=== PATIENT | female | born 2000 | race Hispanic/Latino ===

== ENCOUNTER 2023-04-21 07:29 | Emergency (ER) | payer SELFPAY ==
--- NOTE | 2023-04-21 08:43 | ER ---
Nurse's Notes [facility] Name: Debra Banerjee Age: 22 yrs Sex: Female : 2000 Arrival Date: 04/21/2023 Time: 07:29 Bed 21 Private MD: Diagnosis: Unspecified conjunctivitis Presentation: 04/21 08:11 Chief complaint: Patient states: Right eye itching and tearing x 1 day. Coronavirus jl7 screen: At this time, the client does not indicate any symptoms associated with coronavirus-19. Ebola Screen: No symptoms or risks identified at this time. Initial Sepsis Screen: Does the patient meet any 2 criteria? No. Patient's initial sepsis screen is negative. Does the patient have a suspected source of infection? No. Patient's initial sepsis screen is negative. Risk Assessment: Do you want to hurt yourself or someone else? Patient reports no desire to harm self or others. Onset of symptoms was April 20, 2023. 08:11 Method Of Arrival: Ambulatory [facility] 08:11 Acuity: EILEEN 4 jl7 Triage Assessment: 09:28 General: Appears. jl7 [employer]IST: 08:13 LMP N/A - Recent , Not jl7 Historical: - Allergies: 08:13 No Known Allergies; jl7 - Home Meds: 08:13 Zoloft Oral [Active]; jl7 - PMHx: 08:13 Depressive disorder; jl7 - Immunization history:: Adult Immunizations unknown. - Social history:: Smoking status: Patient denies any tobacco usage or history of. unknown. Screenin:21 [facility] ED Fall Risk Assessment (Adult) Score/Fall Risk Level 0 - 2 = Low Risk jl7 Oriented to surroundings, Maintained a safe environment. Abuse screen: Denies threats or abuse. Denies injuries from another. Nutritional screening: No deficits noted. Tuberculosis screening: No symptoms or risk factors identified. Vital Signs: 08:11 BP 133 / 92; Pulse 90; Resp 15; Temp 97.3; Pulse Ox 100% ; Weight 81.65 kg; Height 5 jl7 ft. 0 in. ; 08:11 Body Mass Index 35.15 (81.65 kg, 152.4 cm) 7 ED Course: 07:37 Patient arrived in ED. im 08:13 Triage completed. jl7 08:13 Arm band placed on right wrist. jl7 08:16 Patricia Hay MD is Attending Physician. sp3 08:23 Anita Raygoza FNP-C is PHCP. snw 08:23 Anita Raygoza FNP-C is PHCP. snw 09:21 Tony Palencia, RN is Primary Nurse. jl7 09:21 Patient has correct armband on for positive identification. Provided Education on: use jl7 of call [place]. 09:21 No provider procedures requiring assistance completed. Patient did not have IV access jl7 during this emergency room visit. 09:44 Primary Nurse role handed off by Tony Palencia, RN 3 Administered Medications: No medications were administered Medication: 09:28 VIS not applicable for this client. jl7 Outcome: 08:42 Discharge ordered by . snw 09:28 Discharged to home ambulatory, jl7 09:28 Condition: stable 09:28 Discharge instructions given to patient, Instructed on discharge instructions, follow up and referral plans. medication usage, Demonstrated understanding of instructions, follow-up care, medications, Prescriptions given X 1, 09:29 Patient left the ED. jl7 09:46 Patient left the ED. 3 Signatures: Anita Raygoza FNP-C FIELD HOCKEY AND LACROSSE COACH-Csnw Tony Palencia, RN RN jl7 Patricia Hay MD MD sp3 Anu Mendoza RN RN eh3 Sydney Banerjee
--- NOTE | 2023-04-21 08:43 | EDPHYS ---
Physician Documentation [facility] Name: Debra Banerjee Age: 22 yrs Sex: Female : 2000 Arrival Date: 04/21/2023 Time: 07:29 Bed 21 Private MD: ED Physician Patricia Hay HPI: 04/21 08:40 This 22 yrs old Female presents to ER via Ambulatory with complaints of Eye Problem. snw 08:40 The patient is experiencing matting or discharge, itching. Onset: The symptoms/episode snw began/occurred suddenly, 1 day(s) ago, and became persistent. Duration: the symptoms are continuous. Aggravated by rubbing. Associated signs and symptoms: Pertinent positives: None. Severity of symptoms: At their worst the symptoms were very mild. It is unknown whether or not the patient has had similar symptoms in the past. It is unknown whether or not the patient has recently seen a physician. RN CASE MANAGER HOSPICE: 08:13 LMP N/A - Recent , Not Historical: - Allergies: 08:13 No Known Allergies; jl7 - Home Meds: 08:13 Zoloft Oral [Active]; jl7 - PMHx: 08:13 Depressive disorder; jl7 - Immunization history:: Adult Immunizations unknown. - Social history:: Smoking status: Patient denies any tobacco usage or history of. unknown. ROS: 08:40 Constitutional: Negative for fever, chills, and weight loss, ENT: Negative for injury, snw pain, and discharge, Neck: Negative for injury, pain, and swelling, Cardiovascular: Negative for chest pain, palpitations, and edema, Respiratory: Negative for shortness of breath, cough, wheezing, and pleuritic chest pain, Abdomen/GI: Negative for abdominal pain, nausea, vomiting, diarrhea, and constipation, Back: Negative for injury and pain, : Negative for injury, bleeding, discharge, and swelling, MS/Extremity: Negative for injury and deformity, Skin: Negative for injury, rash, and discoloration, Neuro: Negative for headache, weakness, numbness, tingling, and seizure, Psych: Negative for depression, anxiety, suicide ideation, homicidal ideation, and hallucinations, 08:40 Eyes: Positive for itching, matting, right greater than left, Exam: 08:40 Constitutional: This is a well developed, well nourished patient who is awake, alert, snw and in no acute distress. Head/Face: Normocephalic, atraumatic. ENT: Nares patent. No nasal discharge, no septal abnormalities noted. Tympanic membranes are normal and external auditory canals are clear. Oropharynx with no redness, swelling, or masses, exudates, or evidence of obstruction, uvula midline. Mucous membranes moist. Neck: Trachea midline, no thyromegaly or masses palpated, and no cervical lymphadenopathy. Supple, full range of motion without nuchal rigidity, or vertebral point tenderness. No Meningismus. Chest/axilla: Normal chest wall appearance and motion. Nontender with no deformity. No lesions are appreciated. Cardiovascular: Regular rate and rhythm with a normal S1 and S2. No gallops, murmurs, or rubs. Normal PMI, no JVD. No pulse deficits. Respiratory: Lungs have equal breath sounds bilaterally, clear to auscultation and percussion. No rales, rhonchi or wheezes noted. No increased work of breathing, no retractions or nasal flaring. Abdomen/GI: Soft, non-tender, with normal bowel sounds. No distension or tympany. No guarding or rebound. No evidence of tenderness throughout. Back: No spinal tenderness. No costovertebral tenderness. Full range of motion. Skin: Warm, dry with normal turgor. Normal color with no rashes, no lesions, and no evidence of cellulitis. MS/ Extremity: Pulses equal, no cyanosis. Neurovascular intact. Full, normal range of motion. Neuro: Awake and alert, GCS 15, oriented to person, place, time, and situation. Cranial nerves II-XII grossly intact. Motor strength 5/5 in all extremities. Sensory grossly intact. Cerebellar exam normal. Normal gait. Psych: Awake, alert, with orientation to person, place and time. Behavior, mood, and affect are within normal limits. 08:40 Eyes: Periorbital structures: appear normal, Pupils: equal, round, and reactive to light and accomodation, Extraocular movements: no acute changes, Conjunctiva: injected, minimally, Vital Signs: 08:11 BP 133 / 92; Pulse 90; Resp 15; Temp 97.3; Pulse Ox 100% ; Weight 81.65 kg; Height 5 jl7 ft. 0 in. ; 08:11 Body Mass Index 35.15 (81.65 kg, 152.4 cm) jl7 MDM: 08:23 Patient medically screened. snw 08:41 Differential diagnosis: Allergic conjunctivitis in Infectious conjunctivitis in. Data snw reviewed: vital signs, nurses notes. Counseling: I had a detailed discussion with the patient and/or guardian regarding the historical points, exam findings, and any diagnostic results supporting the discharge/admit diagnosis, the need for outpatient follow up, for definitive care, to return to the emergency department if symptoms worsen or persist or if there are any questions or concerns that arise at home. Special discussion: Based on the history and exam findings, there is no indication for further emergent testing or inpatient evaluation. I discussed with the patient/guardian the need to see the primary care provider for further evaluation of the symptoms. Administered Medications: No medications were administered Disposition Summary: 04/21/23 08:42 Discharge Ordered Notes: Location: Home snw Condition: Stable snw Diagnosis - Unspecified conjunctivitis snw Followup: snw - With: Emergency Department - When: As needed - Reason: Worsening of condition Followup: snw - With: Private Physician - When: 2 - 3 days - Reason: Recheck today's complaints, Continuance of care, Re-evaluation by your physician Discharge Instructions: - Discharge Summary Sheet snw - Allergic Conjunctivitis, Adult snw - Rehydration, Adult snw - Eating Plan for Women snw Forms: - Medication Reconciliation Form snw - Thank You Letter snw - Antibiotic Education snw - Prescription Opioid Use snw - Patient Portal Instructions snw - Leadership Thank You Letter snw Prescriptions: - Pataday Once Daily Relief 0.7 % Ophthalmic drops - instill 1 drop OPHTHALMIC route daily as needed for itching; 1 unit; Refills: snw 0, Product Selection Permitted Signatures: Anita Raygoza FNP-C TYPO MACHINE OPERATOR-Csnw Tony Palencia RN RN jl7
[2023-04-21 09:42] VITALS: BP 133/92; TEMP 97.3; O2SAT 100
== END 2023-04-21 09:46 | disposition home or self-care (01) ==
LOC: ER 07:29
DX: H10.9 Unspecified conjunctivitis (principal)
CPT/HCPCS: 99283

== ENCOUNTER 2024-02-23 08:32 | Emergency (ER) | payer OTHER ==
--- OUTSIDE RECORDS SUMMARY | 2024-02-23 08:39 | XMS REPORT | Continuity of Care Document ---
Author Name Unknown Address [address] [facility] [address] [place] [address] [facility] thconnect Address [address] [facility] [place] [address] Care Team Providers Care Cutter Head Sharpener Name Role Phone SERAFIN MONTERROSO Primary Care Physician U MELO Tripathi Attending Clinician Unavailable Melo Conway MD Attending Clinician Doctor Unassigned, Tibes Attending Clinician U aiyana 2, [facility] Attending Clinician Unavailable Chano Mcdaniels Attending Clinician Unavail able MELO CONWAY Admitting Clinician Unavailable Melo Conway MD Admitting Clinician Chano Mcdaniels Admitting Clinician Unavail able Payers Payer Name Policy Type Policy Number Effective Date Expirati on Date Source [facility] [id number] 2022 00:00:00 Problems Condition Name Condition Details Condition Category Status Onset Date Resolution Date Last Treatment Date Treating Clinician Comments Source depression depression Disease Active 03-10 00:00: 00 [facility] Normal labor Normal labor Disease Active 2023-0 8-27 00:00: 00 [facility] Liveborn infant, of [place]lexander , born in hospital by vaginal delivery Liveborn infant, of alexander , born in hospital by vaginal delivery Disease Active 8-27 00:00: 00 [facility] Pelvic pain in Pelvic pain in Disease Active 0 8-22 00:00: 00 [facility] High-risk in third trimester High-risk in third trimester Disease Active 7-10 00:00: 00 [facility] Previous section Previous section Disease Active 0 710 00:00: 00 [facility] Rh negative status during in third trimester Rh negative status during in third trimester Disease Active 7 00:00: 00 [facility] History of blood transfusio n History of blood transfusio n Disease Active 7 00:00: 00 [facility] History of hemorrhage History of hemorrhage Disease Active 7 00:00: 00 [facility] History of eclampsia History of eclampsia Disease Active 0 710 00:00: 00 [facility] Allergies, Adverse Reactions, Alerts Allergy Name Allergy Type Status Severity Reaction(s) Onset Date Inactive Date Treating Clinician Comments Source No Known Allergie s DA Active U 07-25 00:00: 00 [facility] [place] DA Active [place] HIVES 2-10 00:00: 00 [facility] No Known Allergie s DA Active U 3-06 00:00: 00 [facility] NO KNOWN ALLERGIE S Drug Class Active [facility] Social History Social Habit Start Date Stop Date Quantity Comments Source ASSERTION 2022-05-29 00:00:00 [facility] Alcohol intake 2023-04-08 00:00:00 2023-04-08 00:00:00 Ex-drinker (finding) [facility] History of Social function 2023-02-23 00:00:00 2023-02-23 00:00:00 [facility] Tobacco use and exposure 2022-12-22 00:00:00 2022-12-22 00:00:00 Smokeless tobacco non-user [facility] Sex Assigned At 2000 00:00:00 2000 00:00:00 [facility] Smoking Status Start Date Stop Date Source Tobacco smoking consumption unknown [facility] Never smoked tobacco [facility] Medications Ordered Medication Name Filled Medication Name Start Date Stop Date Current Medication? Ordering Clinician Indication Dosage Frequency Signature (SIG) Comments Components Source norgestimat e-ethinyl estradioL 0.25-35 mg-mcg per tablet 2022-06 00:00: 00 Yes [id number] 1{tbl} Take 1 tablet by mouth in the morning. [facility] SERTraline (ZOLOFT) 100 mg tablet 2022-06 00:00: 00 Yes [id number] 100mg Take 1 tablet by mouth in the morning. [facility] FERROUS SULFATE 325 mg (65 mg iron) tablet 2022-06 018 00:00: 00 Yes [id number] 325mg TAKE 1 TABLET BY MOUTH IN THE MORNING AND IN THE EVENING [facility] SERTraline (ZOLOFT) 50 mg tablet 2022-06 0-03 00:00: 00 04-08 00:00 :00 No [id number] 50mg Take 1 tablet by mouth in the morning. [facility] norgestimat e-ethinyl estradioL 0.25-35 mg-mcg per tablet 03-10 00:00: 00 04-09 00:00 :00 No [id number] 1{tbl} Take 1 tablet by mouth in the morning. [facility] SERTraline (ZOLOFT) 25 mg tablet 03-10 00:00: 00 04-08 00:00 :00 No [id number] 25mg Take 1 tablet by mouth in the morning. [facility] ibuprofen (IBU) tablet 600 mg 02-09 09:51: 14 Yes 600mg 600 mg, Oral, Q6H ABX, First dose (after last modificati on) on Thu02/09/23 at 0500, Until Discontinu ed, Routine [facility] PNV 102-IRON-FO LATE 1-DSS-DHA ORAL 02-09 08:35: 05 02-09 00:00 :00 No Take by mouth. [facility] vitamin w/FA tablet 02-09 00:00: 00 Yes [id number] 1{tbl} Take 1 tablet by mouth in the morning. [facility] ibuprofen 600 mg tablet 02-09 00:00: 00 Yes [id number] 600mg Take 1 tablet by mouth every 6 (six) hours as needed (Pain). Take with food or milk. [facility] acetaminoph en 325 mg tablet 02-09 00:00: 00 04-08 00:00 :00 No [id number] 650mg Take 2 tablets by mouth every 6 (six) hours as needed for Pain (scale 1-3) or Pain (scale 4-6). [facility] docusate 100 mg capsule 02-09 00:00: 00 04-08 00:00 :00 No [id number] 200mg Take 2 capsules by mouth once daily as needed for Constipati on. [facility] ferrous sulfate 325 mg (65 mg iron) tablet 02-09 00:00: 00 04-01 00:00 :00 No [id number] 325mg Take 1 tablet by mouth in the morning and 1 tablet in the evening. [facility] HYDROcodone -acetaminop hen 5-325 mg tablet 02-09 00:00: 00 02-17 04:59 :00 No [id number] 1{tbl} Take 1 tablet by mouth every 6 (six) hours as needed for Pain (scale 7-10) (Alternate with Ibuprofen) for up to 7 days. Indication s: acute pain [facility] gabapentin 300 mg capsule 02-09 00:00: 00 02-15 04:59 :00 No [id number] 300mg Take 1 capsule by mouth in the morning and 1 capsule at noon and 1 capsule in the evening. Do all this for 5 days. [facility] acetaminoph en (TYLENOL) tablet 650 mg 02-08 23:00: 00 Yes 650mg 650 mg, Oral, Q6H ABX, First dose on Thu02/08/23 at 1800, Until Discontinu ed, Routine [facility] HYDROcodone -acetaminop hen (NORCO 5) 5-325 mg tablet 1 tablet 02-08 23:00: 00 Yes 1{tbl} 1 tablet, Oral, Q6HPRN, Starting on Thu02/08/23 at 1800, Until Discontinu ed, Routine, Pain (scale 7-10), Alternate with Ibuprofen [facility] gabapentin (NEURONTIN) capsule 300 mg 02-08 19:00: 00 Yes 300mg 300 mg, Oral, TID, First dose on Thu02/08/23 at 1400, Until Discontinu ed, Routine [facility] acetaminoph en ADULT (OFIRMEV) injection 1,000 mg 02-08 19:00: 00 02-08 19:11 :00 No 1000mg 1,000 mg, IV Infusion, at 400 mL/hr Administer over 15 Minutes, ONCE, 1 dose, On Thu02/08/23 at 1400, Routine
Indicatio n: Perioperat rod Patient [facility] ketorolac (TORADOL) injection 30 mg 02-08 17:00: 00 02-09 09:50 :24 No 30mg 30 mg, Slow IV Push, Q6H ABX, 4 doses, First dose (after last modificati on) on Thu02/08/23 at 1200, Last dose on Thu02/09/23 at 0600, Routine [facility] diphenhydrA MINE (BENADRYL) injection 25 mg 02-08 15:57: 03 Yes 25mg 25 mg, Slow IV Push, Q6HPRN, Starting on Thu02/08/23 at 1057, Until Discontinu ed, Routine, Itching [facility] diphenhydrA MINE (BENADRYL) tablet 25 mg 02-08 15:57: 03 Yes 25mg 25 mg, Oral, Q6HPRN, Starting on Thu02/08/23 at 1057, Until Discontinu ed, Routine, Sleep, Itching [facility] ondansetron (ZOFRAN (PF)) injection 4 mg 02-08 15:57: 03 Yes 4mg 4 mg, Slow IV Push, Q8HPRN, Starting on Thu02/08/23 at 1057, Until Discontinu ed, Routine, Nausea and Vomiting (N/V) [facility] bisacodyL (DULCOLAX) suppository 10 mg 02-08 15:57: 03 Yes 10mg 10 mg, Rectal, QDAILYPRN, Starting on Thu02/08/23 at 1057, Until Discontinu ed, Routine, Constipati on [facility] simethicone (GAS RELIEF (SIMETHICON E)) chewable tablet 160 mg 02-08 15:57: 03 Yes 160mg 160 mg, Oral, PC+HSPRN, Starting on Thu02/08/23 at 1057, Until Discontinu ed, Routine, Gas [facility] docusate (COLACE) capsule 200 mg 02-08 15:57: 03 Yes 200mg 200 mg, Oral, QDAILYPRN, Starting on Thu02/08/23 at 1057, Until Discontinu ed, Routine, Constipati on [facility] magnesium hydroxide (MILK OF MAGNESIA) 400 mg/5 mL suspension 30 mL 02-08 15:57: 03 Yes 30mL 30 mL, Oral, QDAILYPRN, Starting on Thu02/08/23 at 1057, Until Discontinu ed, Routine, Constipati on [facility] lactated ringers IV infusion 1,000 mL 02-08 15:57: 03 Yes 1000mL at 125 mL/hr, 1,000 mL, IV Infusion, PRN, 1 dose, Starting on Thu02/08/23 at 1057, Until Discontinu ed, Routine [facility] azithromyci n (ZITHROMAX) 500 mg in NaCl 0.9% (NS) 250 mL VIAL-MATE IV piggyback 02-08 14:45: 00 02-08 16:09 :00 No 500mg 500 mg, IV Piggyback, ONCE, 1 dose, On Thu02/08/23 at 0945, Administer over 60 Minutes, 250 mL
Reas on for Anti-Infec tive: Surgical Prophylaxi s
Surgi perlita Prophylaxi s: ROAD CONDUCTOR
Duration of therapy: within 24 hours of surgery [facility] mupirocin (BACTROBAN OINT) 2 % skin ointment 02-08 13:38: 00 Yes Intra-op [facility] naloxone (NARCAN) injection 0.2 mg 02-08 13:04: 50 02-09 13:03 :50 No .2mg 0.2 mg, Intramuscu lar, Q3HPRN, Starting on Thu02/08/23 at 0804, Until 02/09/23 at 0803, Routine, Itching [facility] naloxone (NARCAN) injection 0.4 mg 02-08 13:03: 59 02-10 23:14 :19 No .4mg 0.4 mg, Slow IV Push, PRN - SEE INSTRUCTIO NS, Starting on Thu02/08/23 at 0803, Until Tu02/10/23 at 1814, Routine, Analgesia Recovery [facility] sodium chloride 0.9 % irrigation solution 02-08 12:59: 00 Yes PRN, Starting on Thu02/08/23 at 0759, Until Discontinu ed, Intra-op [facility] lactated ringers IV infusion 1,000 mL 02-08 12:30: 00 02-08 15:57 :11 No 1000mL at 125 mL/hr, 1,000 mL, IV Infusion, CONTINUOUS , Starting on Thu02/08/23 at 0730, Until Thu02/08/23 at 1057, LARRY [facility] sodium citrate-cit trevor acid (BICITRA) 500-334 mg/5 mL solution 30 mL 02-08 09:03: 47 02-08 12:09 :00 No 30mL 30 mL, Oral, PRE-PROCED URE ONCE, 1 dose, Starting on 02/08/23 at 0403, Until Discontinu ed, Routine, Surgery/Pr radha [facility] PNV 102-IRON-FO LATE 1-DSS-DHA ORAL 10 15:13: 26 Yes Take by mouth. [facility] Immunizations Ordered Immunization Name Filled Immunization Name Date Status Comments Source Rho (d) Immune Globulin 2023-02-09 00:00:00 Completed [facility] Rho (d) Immune Globulin 2023-02-09 00:00:00 Completed [facility] Rho (d) Immune Globulin 2023-02-09 00:00:00 Completed [facility] Rho (d) Immune Globulin 2023-02-09 00:00:00 Completed [facility] Rho (d) Immune Globulin 2023-02-09 00:00:00 Completed [facility] Rho (d) Immune Globulin 2022-12-22 00:00:00 Completed [facility] Rho (d) Immune Globulin 2022-12-22 00:00:00 Completed [facility] Rho (d) Immune Globulin 2022-12-22 00:00:00 Completed [facility] Rho (d) Immune Globulin 2022-12-22 00:00:00 Completed [facility] Rho (d) Immune Globulin 2022-12-22 00:00:00 Completed [facility] Rho (d) Immune Globulin 2022-12-22 00:00:00 Completed [facility] Rho (d) Immune Globulin 2022-12-22 00:00:00 Completed [facility] Rho (d) Immune Globulin 2022-12-22 00:00:00 Completed [facility] Rho (d) Immune Globulin 2022-12-22 00:00:00 Completed [facility] Rho (d) Immune Globulin 2022-12-22 00:00:00 Completed [facility] Rho (d) Immune Globulin 2022-12-22 00:00:00 Completed [facility] Rho (d) Immune Globulin 2022-12-22 00:00:00 Completed [facility] Rho (d) Immune Globulin 2022-12-22 00:00:00 Completed [facility] Rho (d) Immune Globulin 2022-12-22 00:00:00 Completed [facility] Rho (d) Immune Globulin Unknown Completed [facility] Rho (d) Immune Globulin Unknown Completed [facility] Rho (d) Immune Globulin Unknown Completed [facility] Rho (d) Immune Globulin Unknown Completed [facility] Rho (d) Immune Globulin Unknown Completed [facility] Rho (d) Immune Globulin Unknown Completed [facility] Rho (d) Immune Globulin Unknown Completed [facility] Rho (d) Immune Globulin Unknown Completed [facility] Rho (d) Immune Globulin Unknown Completed [facility] Rho (d) Immune Globulin Unknown Completed [facility] Rho (d) Immune Globulin Unknown Completed [facility] Rho (d) Immune Globulin Unknown Completed [facility] Rho (d) Immune Globulin Unknown Completed [facility] Rho (d) Immune Globulin Unknown Completed [facility] Rho (d) Immune Globulin Unknown Completed [facility] Rho (d) Immune Globulin Unknown Completed [facility] Vital Signs Vital Name Observation Time Observation Value Comments S ource Systolic blood pressure 2023-04-08 19:58:00 130 mm[Hg] [facility] Diastolic blood pressure 2023-04-08 19:58:00 85 mm[Hg] [facility] Heart rate 2023-04-08 19:58:00 65 [facility] temperature 2023-04-08 19:58:00 36.11 Sherita [facility] Respiratory rate 2023-04-08 19:58:00 17 /min [facility] Body height 2023-04-08 19:58:00 149.9 cm [facility] Body weight 2023-04-08 19:58:00 82.827 kg [facility] BMI 2023-04-08 19:58:00 36.88 kg/m2 [facility] Systolic blood pressure 2023-03-10 20:39:00 135 mm[Hg] [facility] Diastolic blood pressure 2023-03-10 20:39:00 94 mm[Hg] [facility] Heart rate 2023-03-10 20:38:00 62 /min [facility] Body temperature 2023-03-10 20:38:00 36.39 Sherita [facility] Body height 2023-03-10 20:38:00 149.9 cm Univ [facility] Body weight 2023-03-10 20:38:00 81.92 kg [facility] BMI 2023-03-10 20:38:00 36.48 kg/m2 Univ [facility] Systolic blood pressure 2023-03-02 19:07:00 117 mm[Hg] [facility] Diastolic blood pressure 2023-03-02 19:07:00 78 mm[Hg] [facility] Heart rate 2023-03-02 19:05:00 78 /min [facility] Body temperature 2023-03-02 19:05:00 36.61 Sherita [facility] Respiratory rate 2023-03-02 19:05:00 18 /min [facility] Body height 2023-03-02 19:05:00 149.9 cm [facility] Body weight 2023-03-02 19:05:00 81.738 kg [facility] BMI 2023-03-02 19:05:00 36.40 kg/m2 [facility] Body temperature 2023-02-10 14:00:00 36.78 Sherita [facility] Systolic blood pressure 2023-02-10 10:25:00 130 mm[Hg] [facility] Diastolic blood pressure 2023-02-10 10:25:00 74 mm[Hg] [facility] Heart rate 2023-02-10 10:25:00 66 /min [facility] Respiratory rate 2023-02-10 10:25:00 20 /min [facility] Oxygen saturation in Arterial blood by Pulse oximetry 2023-02-10 10:25:00 100 /min [facility] Body height 2023-02-08 12:00:00 149.9 cm [facility] Body weight 2023-02-08 12:00:00 92.08 kg [facility] BMI 2023-02-08 12:00:00 41.00 kg/m2 [facility] Body temperature 2023-02-08 13:40:00 36.28 Sherita [facility] Heart rate 2023-02-08 12:00:00 71 /min [facility] Body height 2023-02-08 12:00:00 149.9 cm [facility] Body weight 2023-02-08 12:00:00 92.08 kg Univ [facility] BMI 2023-02-08 12:00:00 41.00 kg/m2 [facility] Oxygen saturation in Arterial blood by Pulse oximetry 2023-02-08 12:00:00 100 /min [facility] Systolic blood pressure 2023-02-08 07:00:00 107 mm[Hg] [facility] Diastolic blood pressure 2023-02-08 07:00:00 62 mm[Hg] [facility] Respiratory rate 2023-02-08 06:46:00 17 /min [facility] Systolic blood pressure 2023-02-03 18:11:00 120 mm[Hg] [facility] Diastolic blood pressure 2023-02-03 18:11:00 81 mm[Hg] [facility] Heart rate 2023-02-03 18:11:00 80 /min [facility] Body temperature 2023-02-03 18:11:00 36.67 Sherita [facility] Respiratory rate 2023-02-03 18:11:00 18 /min [facility] Body height 2023-02-03 18:11:00 149.9 cm [facility] Body weight 2023-02-03 18:11:00 91.264 kg [facility] BMI 2023-02-03 18:11:00 40.64 kg/m2 [facility] Oxygen saturation in Arterial blood by Pulse oximetry 2023-02-03 18:11:00 98 /min [facility] Systolic blood pressure 2023-01-27 20:31:00 109 mm[Hg] [facility] Diastolic blood pressure 2023-01-27 20:31:00 72 mm[Hg] [facility] Heart rate 2023-01-27 20:31:00 85 /min [facility] Body temperature 2023-01-27 20:31:00 37.06 Sherita [facility] Body height 2023-01-27 20:31:00 149.9 cm [facility] Body weight 2023-01-27 20:31:00 92.171 kg Univ [facility] BMI 2023-01-27 20:31:00 41.04 kg/m2 [facility] Systolic blood pressure 2023-01-13 18:34:00 103 mm[Hg] [facility] Diastolic blood pressure 2023-01-13 18:34:00 63 mm[Hg] [facility] Heart rate 2023-01-13 18:34:00 68 /min [facility] Body temperature 2023-01-13 18:34:00 36.61 Sherita [facility] Body height 2023-01-13 18:34:00 149.9 cm [facility] Body weight 2023-01-13 18:34:00 90.629 kg Univ [facility] BMI 2023-01-13 18:34:00 40.35 kg/m2 [facility] Systolic blood pressure 2022-12-22 19:56:00 117 mm[Hg] [facility] Diastolic blood pressure 2022-12-22 19:56:00 72 mm[Hg] [facility] Heart rate 2022-12-22 19:56:00 76 /min [facility] Body temperature 2022-12-22 19:56:00 36.56 Sherita [facility] Respiratory rate 2022-12-22 19:56:00 18 /min [facility] Body height 2022-12-22 19:56:00 149.9 cm [facility] Body weight 2022-12-22 19:56:00 89.812 kg Univ [facility] BMI 2022-12-22 19:56:00 39.99 kg/m2 [facility] Oxygen saturation in Arterial blood by Pulse oximetry 2022-12-22 19:56:00 98 /min [facility] Procedures Procedure Date / Time Performed Performing Clinician Source POCT TEST 2023-04-08 00:00:00 Melo Conway [facility] CONSENT FOR CONTRACEPTION 2023-03-10 05:01:00 Doctor Unassigned, Tibes [facility] POCT TEST 2023-03-10 00:00:00 Melo Conway [facility] CBC WITH DIFF 2023-02-09 09:44:00 Melo Conway [facility] HB -MATERNAL HEMORRHAGE SCREEN 2023-02-09 09:44:00 Melo Conway [facility] CBC WITH DIFF 2023-02-09 09:44:00 Jaime Melofrancesco Carlson [facility] HB -MATERNAL HEMORRHAGE SCREEN 2023-02-09 09:44:00 Melo Conway [facility] PREPARE PACKED RBC 2023-02-08 17:16:33 Melo Conway [facility] PREPARE PACKED RBC 2023-02-08 17:16:33 Melo Conway U [facility] SECTION 2023-02-08 12:00:00 Melo Conway [facility] SECTION 2023-02-08 12:00:00 Melo Conway [facility] ANTI-D R/O PANEL 2023-02-08 11:13:00 Melo Conway [facility] ABORH CONFIRMATION (LAB ONLY) 2023-02-08 11:13:00 Melo Conway [facility] EXTRA TUBE LAV (BLOOD BANK) 2023-02-08 11:13:00 Jaime Melofrancesco Carlson [facility] ANTI-D R/O PANEL 2023-02-08 11:13:00 Jaime Melofrancesco Carlson [facility] ABORH CONFIRMATION (LAB ONLY) 2023-02-08 11:13:00 Melo Conway [facility] EXTRA TUBE LAV (BLOOD BANK) 2023-02-08 11:13:00 Jaime [facility] CBC WITH DIFF 2023-02-08 09:30:00 Jaime [facility] HEPATITIS B SURFACE ANTIGEN 2023-02-08 09:30:00 Conway [facility] HB ABO GROUPING 2023-02-08 09:30:00 Conway [facility] RHO (D) IMMUNE GLOBULIN 2023-02-08 09:30:00 Conway [facility] ADC OR STEVEN ONLY - RPR 2023-02-08 09:30:00 Conway [facility] HIV 1/2 AG-AB WITH REFLEX 2023-02-08 09:30:00 Jaime [facility] CBC WITH DIFF 2023-02-08 09:30:00 Jaime [facility] HEPATITIS B SURFACE ANTIGEN 2023-02-08 09:30:00 Conway, [facility] HB ABO GROUPING 2023-02-08 09:30:00 Jaime [facility] RHO (D) IMMUNE GLOBULIN 2023-02-08 09:30:00 Jaime [facility] ADC OR STEVEN ONLY - RPR 2023-02-08 09:30:00 Jaime [facility] HIV 1/2 AG-AB WITH REFLEX 2023-02-08 09:30:00 Jaime [facility] ADC CLC OR LCC ONLY - WET PREP 2023-02-08 08:32:00 Jaime [facility] ADC CLC OR LCC ONLY - WET PREP 2023-02-08 08:32:00 Conway [facility] CONSENT/REFUSAL FOR DIAGNOSIS AND TREATMENT 2023-02-08 06:25:26 Doctor Unassigned, Tibes [facility] CONSENT/REFUSAL FOR DIAGNOSIS AND TREATMENT 2023-02-08 06:25:26 Doctor Unassigned, Tibes [facility] POCT URINALYSIS W/O SPECIFIC GRAVITY 2023-02-03 00:00:00 Jaime [facility] >14 WEEKS US LIMITED 2023-01-27 21:19:37 Melo Conway [facility] DSU PRE-OP 2023-01-27 05:01:00 Doctor Unass igned, Tibes [facility] POCT URINALYSIS W/O SPECIFIC GRAVITY 2023-01-27 00:00:00 ConwayMelo [facility] POCT URINALYSIS W/O SPECIFIC GRAVITY 2023-01-13 00:00:00 JaimeMelo [facility] REFERRAL- REQUEST/RESPONSE 2022-12-24 05:01:00 Doctor Unassigned, Tibes [facility] ASSIGNMENT OF BENEFITS 2022-12-22 19:34:02 Docto r Unassigned, Tibes [facility] POCT URINALYSIS W/O SPECIFIC GRAVITY 2022-12-22 00:00:00 Melo Conway [facility] REFERRAL- REQUEST/RESPONSE 2022-12-18 05:01:00 Doctor Unassigned, Tibes [facility] [id number] 2021-07-25 00:00:00 JODIE RUBIO [facility] Encounters Start Date/Time End Date/Time Encounter Type Admission Type Attending [facility] Care Facility Care Department Encounter ID Source 2023-05-06 15:00:00 2023-05-06 15:00:00 Outpatient R MELO CONWAY [facility] [id number] [facility] 2023-04-30 00:00:00 2023-04-30 00:00:00 Refill Melo Conway [place] [address].2.840.114 350.1.13.10 4.2.7.2.686 [id number] 134 [id number] [facility] 2023-04-09 00:00:00 2023-04-09 00:00:00 Telephone Melo Conway [facility] 1.2.840.114 350.1.13.10 4.2.7.2.686 [id number] 134 [id number] [facility] 2023-04-08 14:45:00 2023-04-08 15:18:57 Outpatient R MELO CONWAY [facility] [id number] [facility] 2023-04-08 14:45:00 2023-04-08 15:18:57 Office Visit Melo Conway [facility] 1.2.840.114 350.1.13.10 4.2.7.2.686 [id number] 134 [id number] [facility] 2023-04-02 00:00:00 2023-04-02 00:00:00 Telephone Melo Conway [facility] 1.2.840.114 350.1.13.10 4.2.7.2.686 [id number] 134 [id number] [facility] 2023-04-01 00:00:00 2023-04-01 00:00:00 Refill Melo Conway [facility] 1.2.840.114 350.1.13.10 4.2.7.2.686 [id number] 134 [id number] [facility] 2023-03-10 16:00:00 2023-03-10 16:01:56 Outpatient R MELO CONWAY [facility] [id number] [facility] 2023-03-10 16:00:00 2023-03-10 16:01:56 Routine Visit Melo Conway [facility] 1.2.840.114 350.1.13.10 4.2.7.2.686 [id number] 134 [id number] [facility] 2023-03-10 00:00:00 2023-03-10 00:00:00 Orders Only Doctor Unassigned, Tibes [facility] 1.2.840.114 350.1.13.10 4.2.7.2.686 [id number] 009 [id number] [facility] 2023-03-02 13:45:00 2023-03-02 14:29:51 Outpatient R MELO CONWAY [facility] [id number] [facility] 2023-03-02 13:45:00 2023-03-02 14:29:51 Routine Visit Melo Conway [facility] 1.2.840.114 350.1.13.10 4.2.7.2.686 [id number] 134 [id number] [facility] 2023-02-23 16:00:00 2023-02-23 16:15:00 [facility] 1.2.840.114 350.1.13.10 4.2.7.2.686 [id number] 134 [id number] [facility] 2023-02-23 16:00:00 2023-02-23 16:00:00 Outpatient R MELO CONWAY [facility] [id number] [facility] 2023-02-18 00:00:00 2023-02-18 00:00:00 [facility] 1.2.840.114 350.1.13.10 4.2.7.2.686 [id number] 134 [id number] [facility] 2023-02-08 01:32:00 2023-02-10 15:20:00 [facility] [id number] [facility] 2023-02-08 01:32:00 2023-02-10 15:20:00 Hospital Encounter Melo Conway [facility] 1.2.840.114 350.1.13.10 4.2.7.2.686 [id number] [facility] 2023-02-10 13:00:00 2023-02-10 13:00:00 Outpatient R MELO CONWAY [facility] [id number] [facility] 2023-02-08 07:00:00 2023-02-08 08:42:[address] 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 Visit 2, [facility] 1.2.840.114 350.1.13.10 4.2.7.2.686 [id number] [facility] 2023-01-27 16:00:00 2023-01-27 16:00:51 Routine Visit Melo Conway [facility] 1.2.840.114 350.1.13.10 4.2.7.2.686 [id number] 134 [id number] [facility] 2023-01-27 16:00:00 2023-01-27 16:00:51 Outpatient R MELO CONWAY [facility] [id number] [facility] 2023-01-27 00:00:00 2023-01-27 00:00:00 Orders Only Doctor Unassigned, Tibes [facility] 1.2.840.114 350.1.13.10 4.2.7.2.686 [id number] [id number] [facility] 2023-01-13 13:45:00 2023-01-13 13:51:16 [id number] 2023-01-13 13:45:00 2023-01-13 13:51:16 Routine Visit Melo Conway [facility] 1.2.840.114 350.1.13.10 4.2.7.2.686 [id number] 134 [id number] [facility] 2022-12-24 00:00:00 2022-12-24 00:00:00 Orders Only Doctor Unassigned, Tibes [facility] 1.2.840.114 350.1.13.10 4.2.7.2.686 [id number] 009 [id number] [facility] 2022-12-22 14:30:00 2022-12-22 15:59:23 [id number] 2022-12-22 14:30:00 2022-12-22 15:59:23 Initial Visit Melo Conway [facility] 1.2.840.114 350.1.13.10 4.2.7.2.686 [id number] 134 [id number] [facility] 2022-12-22 00:00:00 2022-12-22 00:00:00 Orders Only Doctor Unassigned, Tibes [facility] 1.2.840.114 350.1.13.10 4.2.7.2.686 [id number] [id number] [facility] 2022-12-18 13:17:56 2022-12-18 13:17:[address] [facility] [id number] Derick Clarke 2022-12-18 00:00:00 2022-12-18 00:00:00 Orders Only Doctor Unassigned, Tibes [facility] 1.2.840.114 350.1.13.10 4.2.7.2.686 [id number] 009 [id number] [facility] 2022-11-19 10:08:38 2022-11-19 10:08:38 Outpatient [facility] [id number] Derick Clarke 2022-10-31 15:21:24 2022-10-31 15:21:24 Outpatient [facility] [id number] Derick Clarke 2022-10-27 11:01:48 2022-10-27 11:01:48 Outpatient [facility] [id number] Derick Clarke 2021-07-25 06:42:00 2021-07-27 17:30:00 Inpatient TAMMY Chano Mcdaniels [facility] [id number] [facility] 2021-07-26 06:07:00 2021-07-26 06:07:00 Outpatient IONCENCIO Chano Mcdaniels [facility] [id number] [facility] Results Test Description Test Time Test Comments Results Result Co mments Source [facility] [id number] 19:57:00* Test Item Value Reference Range Interpretation Comme nts POCT PREG (test code = 1605) Negative On board controls acceptable with C Line (test code = 3574) Yes POCT PREG LOT # (test code = 3575) POCT PREG TEST DATE ( test code = 3576) [facility] [id number] 20:44:00* Test Item Value Reference Range Interpretation Comme nts POCT PREG (test code = 1605) Negative On board controls acceptable with C Line (test code = 3574) Yes POCT PREG LOT # (test code = 3575) POCT PREG TEST DATE ( test code = 3576) [facility] with Hbmhxvdlnxko6026-00-93 10:29:05* Test Item Value Reference Range Interpretation Comme nts WBC (test code = 6690-2) 9.91 See_Comment [Automated messa ge] The system which generated this result transmitted reference range: 4.30 - 11.10 10*3/?L. The reference range was not used to interpret this result as normal/abnormal. RBC (test code = 789-8) 3.48 See_Comment L [Automated messa ge] The system which generated this result transmitted reference range: 3.93 - 5.25 10*6/?L. The reference range was not used to interpret this result as normal/abnormal. HGB (test code = 718-7) 10.4 g/dL 11.6-15.0 L HCT (test code = 4544-3) 31.5 % 35.7-45.2 L MCV (test code = 787-2) 90.5 fL 80.6-95.5 MCH (test code = 785-6) 29.9 pg 25.9-32.8 MCHC (test code = 786-4) 33.0 g/dL 31.6-35.1 RDW-SD (test code = 97844-6) 46.8 fL 39.0-49.9 RDW-CV (test code = 788-0) 14.4 % 12.0-15.5 PLT (test code = 777-3) 208 See_Comment [Automated messa ge] The system which generated this result transmitted reference range: 166 - 358 10*3/?L. The reference range was not used to interpret this result as normal/abnormal. MPV (test code = 47722-6) 10.6 fL 9.5-12.9 NRBC/100 WBC (test code = 7759250659) 0.0 See_Comment [Automated [employer] ssage] The system which generated this result transmitted reference range: 0.0 - 10.0 /100 WBCs. The reference range was not used to interpret this result as normal/abnormal. NRBC x10^3 (test code = 4847835352) See_Comment [Automated [employer] ge] The system which generated this result transmitted reference range: 10*3/?L. The reference range was not used to interpret this result as normal/abnormal. GRAN MAT (NEUT) % (test code = 770-8) 72.8 % IMM GRAN % (test code = 3751960744) 0.70 % LYMPH % (test code = 736-9) 18.5 % MONO % (test code = 5905-5) 7.1 % EOS % (test code = 713-8) 0.6 % BASO % (test code = 706-2) 0.3 % GRAN MAT x10^3(ANC) (test code = 5707454966) 7.22 10*3/uL 1.88-7.09 H IMM GRAN x10^3 (test code = 4860061044) 0.07 10*3/uL 0.00-0.06 H LYMPH x10^3 (test code = 731-0) 1.83 10*3/uL 1.32-3.29 MONO x10^3 (test code = 742-7) 0.70 10*3/uL 0.33-0.92 EOS x10^3 (test code = 711-2) 0.06 10*3/uL 0.03-0.39 BASO x10^3 (test code = 704-7) 0.03 10*3/uL 0.01-0.07 Lab Interpretation (test code = 95587-6) Abnormal [facility] with Ocpmutordxwg4988-25-70 10:29:05* Test Item Value Reference Range Interpretation Comme nts WBC (test code = 6690-2) 9.91 See_Comment [Automated messa ge] The system which generated this result transmitted reference range: 4.30 - 11.10 10*3/?L. The reference range was not used to interpret this result as normal/abnormal. RBC (test code = 789-8) 3.48 See_Comment L [Automated messa ge] The system which generated this result transmitted reference range: 3.93 - 5.25 10*6/?L. The reference range was not used to interpret this result as normal/abnormal. HGB (test code = 718-7) 10.4 g/dL 11.6-15.0 L HCT (test code = 4544-3) 31.5 % 35.7-45.2 L MCV (test code = 787-2) 90.5 fL 80.6-95.5 MCH (test code = 785-6) 29.9 pg 25.9-32.8 MCHC (test code = 786-4) 33.0 g/dL 31.6-35.1 RDW-SD (test code = 77083-0) 46.8 fL 39.0-49.9 RDW-CV (test code = 788-0) 14.4 % 12.0-15.5 PLT (test code = 777-3) 208 See_Comment [Automated messa ge] The system which generated this result transmitted reference range: 166 - 358 10*3/?L. The reference range was not used to interpret this result as normal/abnormal. MPV (test code = 56910-8) 10.6 fL 9.5-12.9 NRBC/100 WBC (test code = 8012983034) 0.0 See_Comment [Automated me ssage] The system which generated this result transmitted reference range: 0.0 - 10.0 /100 WBCs. The reference range was not used to interpret this result as normal/abnormal. NRBC x10^3 (test code = 6567682508) See_Comment [Automated messa ge] The system which generated this result transmitted reference range: 10*3/?L. The reference range was not used to interpret this result as normal/abnormal. GRAN MAT (NEUT) % (test code = 770-8) 72.8 % IMM GRAN % (test code = 1158571667) 0.70 % LYMPH % (test code = 736-9) 18.5 % MONO % (test code = 5905-5) 7.1 % EOS % (test code = 713-8) 0.6 % BASO % (test code = 706-2) 0.3 % GRAN MAT x10^3(ANC) (test code = 6493970539) 7.22 10*3/uL 1.88-7.09 H IMM GRAN x10^3 (test code = 8414225391) 0.07 10*3/uL 0.00-0.06 H LYMPH x10^3 (test code = 731-0) 1.83 10*3/uL 1.32-3.29 MONO x10^3 (test code = 742-7) 0.70 10*3/uL 0.33-0.92 EOS x10^3 (test code = 711-2) 0.06 10*3/uL 0.03-0.39 BASO x10^3 (test code = 704-7) 0.03 10*3/uL 0.01-0.07 Lab Interpretation (test code = 87102-6) [facility]normal [facility] [id number] 10:26:00 * Test Item Value Reference Range Interpretation Comme nts SCREEN (test code = 846) Negative RHIG REQUIRED? (test code = 1747) 1 Syringe [facility] [id number] 10:26:00 * Test Item Value Reference Range Interpretation Comme nts SCREEN (test code = 846) Negative RHIG REQUIRED? (test code = 1747) 1 Syringe General acute hospital OR [facility] ONLY - [id number] 08:04:46* Test Item Value Reference Range Interpretation Comme nts RPR (Qualitative) (test code = 32590-1) Nonreactive Nonreactive Lab Interpretation (test cod e = 45232-4) Normal General acute hospital OR [facility] ONLY - [id number] 08:04:46* Test Item Value Reference Range Interpretation Comme nts RPR (Qualitative) (test code = 31322-4) Nonreactive Nonreactive Lab Interpretation (test cod e = 74728-9) Normal [facility]/O [id number] 17:16:33* Test Item Value Reference Range Interpretation Comme nts ANTIBODY (test code = 683) Anti-D Probable RhIg RhIg given 12/22/22Performed at [facility] Laboratory Services - [facility] Blood [address] [address] Free: [phone] No. [id number] [facility] R/O [id number] 17:16:33* Test Item Value Reference Range Interpretation Comme nts ANTIBODY (test code = 683) Anti-D Probable RhIg RhIg given 12/22/22Performed at [facility] Laboratory Services - [facility] Blood [address] [address]Kwxg Free: [phone] No. [id number] [facility] Hospital[facility]HO (D) IMMUNE [id number] 17:08:10* Test Item Value Reference Range Interpretation Comme nts RHIG CANDIDATE? (test code = 5188) Yes- see comment A Patient is a candidate for RhIg- Patient is Rh Negative and baby is Rh Positive.Performe d at [facility] Laboratory Services - [facility] Blood [address] [place] [address]Twvk Free: [phone] No. [id number] Lab Interpretation (test code = 98192-1) Abnormal [facility]D) IMMUNE [id number] 17:08:10* Test Item Value Reference Range Interpretation Comme nts RHIG CANDIDATE? (test code = 5188) Yes- see comment A Patient is a candidate for RhIg- Patient is Rh Negative and baby is Rh Positive.Performe d at [facility] Laboratory Services - [facility] Blood [address] [place] [address]Ewqh Free: [phone] No. [id number] Lab Interpretation (test code = 86145-4) Abnormal [facility] HospitalHepatitis B Surface [id number] 16:57:37 * Test Item Value Reference Range Interpretation Comme nts HBsAg Semi-Quantitative (vandana t code = 5195-3) 0.06 Negative [facility] B Surface [id number] 16:57:37 * Test Item Value Reference Range Interpretation Comme nts HBsAg Semi-Quantitative (vandana t code = 5195-3) 0.06 Negative [facility]HIV [facility]2 AG-AB WITH [id number] 12:21:40* Test Item Value Reference Range Interpretation Comme nts HIV Semi-quantitative (test code = 52341-8) 0.07 Negative WINSOME (test code = WINSOME) Non-reactive for HIV-1 antigen and HIV-1/HIV-2 antibodies. ?No laboratory evidence of HIV infection. ?Repeat in 2-4 weeks if acute HIV infection is suspected. [facility] AG-AB WITH [id number] 12:21:40* Test Item Value Reference Range Interpretation Comme nts HIV Semi-quantitative (test code = 45819-2) 0.07 Negative WINSOME (test code = WINSOME) Non-reactive for HIV-1 antigen and HIV-1/HIV-2 antibodies. ?No laboratory evidence of HIV infection. ?Repeat in 2-4 weeks if acute HIV infection is suspected. [facility] HospitalABORH Confirmation (Lab Only)2023-02-08 11:24:00* Test Item Value Reference Range Interpretation Comme nts ABO & RH (test code = 20) A Negative [facility] Confirmation (Lab Only)2023-02-08 11:24:00* Test Item Value Reference Range Interpretation Comme nts ABO & RH (test code = 20) A Negative [facility] HospitalCBC with Chedmtfwifrd9084-55-51 09:52:52* Test Item Value Reference Range Interpretation Comme nts WBC (test code = 6690-2) 11.44 See_Comment H [Automated messa ge] The system which generated this result transmitted reference range: 4.30 - 11.10 10*3/?L. The reference range was not used to interpret this result as normal/abnormal. RBC (test code = 789-8) 3.88 See_Comment L [Automated messa ge] The system which generated this result transmitted reference range: 3.93 - 5.25 10*6/?L. The reference range was not used to interpret this result as normal/abnormal. HGB (test code = 718-7) 11.5 g/dL 11.6-15.0 L HCT (test code = 4544-3) 34.7 % 35.7-45.2 L MCV (test code = 787-2) 89.4 fL 80.6-95.5 MCH (test code = 785-6) 29.6 pg 25.9-32.8 MCHC (test code = 786-4) 33.1 g/dL 31.6-35.1 RDW-SD (test code = 16467-3) 46.5 fL 39.0-49.9 RDW-CV (test code = 788-0) 14.4 % 12.0-15.5 PLT (test code = 777-3) 224 See_Comment [Automated messa ge] The system which generated this result transmitted reference range: 166 - 358 10*3/?L. The reference range was not used to interpret this result as normal/abnormal. MPV (test code = 59557-6) 10.6 fL 9.5-12.9 NRBC/100 WBC (test code = 2072769784) 0.0 See_Comment [Automated me ssage] The system which generated this result transmitted reference range: 0.0 - 10.0 /100 WBCs. The reference range was not used to interpret this result as normal/abnormal. NRBC x10^3 (test code = 2972584425) See_Comment [Automated messa ge] The system which generated this result transmitted reference range: 10*3/?L. The reference range was not used to interpret this result as normal/abnormal. GRAN MAT (NEUT) % (test code = 770-8) 71.8 % IMM GRAN % (test code = 4114090206) 1.60 % LYMPH % (test code = 736-9) 20.6 % MONO % (test code = 5905-5) 5.4 % EOS % (test code = 713-8) 0.3 % BASO % (test code = 706-2) 0.3 % GRAN MAT x10^3(ANC) (test code = 6577382318) 8.20 10*3/uL 1.88-7.09 H IMM GRAN x10^3 (test code = 2081707739) 0.18 10*3/uL 0.00-0.06 H LYMPH x10^3 (test code = 731-0) 2.36 10*3/uL 1.32-3.29 MONO x10^3 (test code = 742-7) 0.62 10*3/uL 0.33-0.92 EOS x10^3 (test code = 711-2) 0.04 10*3/uL 0.03-0.39 BASO x10^3 (test code = 704-7) 0.04 10*3/uL 0.01-0.07 Lab Interpretation (test code = 72924-6) Abnormal [facility] with Pxrhvgdpictw9824-57-47 09:52:52* Test Item Value Reference Range Interpretation Comme nts WBC (test code = 6690-2) 11.44 See_Comment H [Automated messa ge] The system which generated this result transmitted reference range: 4.30 - 11.10 10*3/?L. The reference range was not used to interpret this result as normal/abnormal. RBC (test code = 789-8) 3.88 See_Comment L [Automated messa ge] The system which generated this result transmitted reference range: 3.93 - 5.25 10*6/?L. The reference range was not used to interpret this result as normal/abnormal. HGB (test code = 718-7) 11.5 g/dL 11.6-15.0 L HCT (test code = 4544-3) 34.7 % 35.7-45.2 L MCV (test code = 787-2) 89.4 fL 80.6-95.5 MCH (test code = 785-6) 29.6 pg 25.9-32.8 MCHC (test code = 786-4) 33.1 g/dL 31.6-35.1 RDW-SD (test code = 81912-7) 46.5 fL 39.0-49.9 RDW-CV (test code = 788-0) 14.4 % 12.0-15.5 PLT (test code = 777-3) 224 See_Comment [Automated messa ge] The system which generated this result transmitted reference range: 166 - 358 10*3/?L. The reference range was not used to interpret this result as normal/abnormal. MPV (test code = 38012-0) 10.6 fL 9.5-12.9 NRBC/100 WBC (test code = 3551984843) 0.0 See_Comment [Automated [employer] ssage] The system which generated this result transmitted reference range: 0.0 - 10.0 /100 WBCs. The reference range was not used to interpret this result as normal/abnormal. NRBC x10^3 (test code = 2885195211) See_Comment [Automated messa ge] The system which generated this result transmitted reference range: 10*3/?L. The reference range was not used to interpret this result as normal/abnormal. GRAN MAT (NEUT) % (test code = 770-8) 71.8 % IMM GRAN % (test code = 0320703661) 1.60 % LYMPH % (test code = 736-9) 20.6 % MONO % (test code = 5905-5) 5.4 % EOS % (test code = 713-8) 0.3 % BASO % (test code = 706-2) 0.3 % GRAN MAT x10^3(ANC) (test code = 3551148441) 8.20 10*3/uL 1.88-7.09 H IMM GRAN x10^3 (test code = 3711875230) 0.18 10*3/uL 0.00-0.06 H LYMPH x10^3 (test code = 731-0) 2.36 10*3/uL 1.32-3.29 MONO x10^3 (test code = 742-7) 0.62 10*3/uL 0.33-0.92 EOS x10^3 (test code = 711-2) 0.04 10*3/uL 0.03-0.39 BASO x10^3 (test code = 704-7) 0.04 10*3/uL 0.01-0.07 Lab Interpretation (test code = 65012-7) Abnormal [facility] - ONCE [id number] 09:50:00 * Test Item Value Reference Range Interpretation Comme nts ABO & RH (test code = 20) A Negative IAT (test code = 1185) Positive Anti-D probably due to RhIG given 12/22/2022 LM [facility] and Screen - ONCE [id number] 09:50:00 * Test Item Value Reference Range Interpretation Comme nts ABO & RH (test code = 20) A Negative IAT (test code = 1185) Positive Anti-D probably due to RhIG given 12/22/2022 LM [facility] W/O SPECIFIC [id number] 18:09:00* Test Item Value Reference Range Interpretation Comme nts POCT PH U (test code = 3254) n/a 5-8 POCT U LEUK EST (test code = 3263) n/a Negative - Negative POCT U NIT (test code = 3262) n/a Negative - Negati ve POCT U PROT (test code = 3259) TRACE Negative - Negat rod POCT U GLU (test code = 3256) negative Negative - Negati ve POCT U KETONE (test code = 3258) n/a Negative - Neg ative POCT U BLD (test code = 3257) n/a Negative - [facility]ati [facility]CIFIC [id number] 18:09:00* Test Item Value Reference Range Interpretation Comme nts POCT PH U (test code = 3254) n/a 5-8 POCT U LEUK EST (test code = 3263) n/a Negative - Negative POCT U NIT (test code = 3262) n/a Negative - Negati ve POCT U PROT (test code = 3259) TRACE Negative - Negat rod POCT U GLU (test code = 3256) negative Negative - Negati ve POCT U KETONE (test code = 3258) n/a Negative - Neg ative POCT U BLD (test code = 3257) n/a Negative - Negati ve [facility] URINALYSIS W/O SPECIFIC [id number] 20:29:00* Test Item Value Reference Range Interpretation Comme nts POCT PH U (test code = 3254) n/a 5-8 POCT U LEUK EST (test code = 3263) n/a Negative - Negative POCT U NIT (test code = 3262) n/a Negative - Negati ve POCT U PROT (test code = 3259) Negative Negative - Negat rod POCT U GLU (test code = 3256) Normal Negative - Negati ve POCT U KETONE (test code = 3258) n/a Negative - Neg ative POCT U BLD (test code = 3257) n/a Negative - Negati ve [facility] URINALYSIS W/O SPECIFIC [id number] 18:33:00* Test Item Value Reference Range Interpretation Comme nts POCT PH U (test code = 3254) n/a 5-8 POCT U LEUK EST (test code = 3263) n/a Negative - Negative POCT U NIT (test code = 3262) n/a Negative - Negati ve POCT U PROT (test code = 3259) Negative Negative - Negat rod POCT U GLU (test code = 3256) Normal Negative - Negati ve POCT U KETONE (test code = 3258) n/a Negative - Neg ative POCT U BLD (test code = 3257) n/a Negative - Negati ve [facility] URINALYSIS W/O SPECIFIC [id number] 20:09:00* Test Item Value Reference Range Interpretation Comme nts POCT PH U (test code = 3254) n/a 5-8 POCT U LEUK EST (test code = 3263) n/a Negative - Negative POCT U NIT (test code = 3262) n/a Negative - Negati ve POCT U PROT (test code = 3259) negative Negative - Negat rod POCT U GLU (test code = 3256) negative Negative - Negati ve POCT U KETONE (test code = 3258) n/a Negative - Neg ative POCT U BLD (test code = 3257) n/a Negative - [facility] [id number] 20:09:00* Test Item Value Reference Range Interpretation Comme nts POCT PH U (test code = 3254) n/a 5-8 POCT U LEUK EST (test code = 3263) n/a Negative - Negative POCT U NIT (test code = 3262) n/a Negative - Negati ve POCT U PROT (test code = 3259) negative Negative - Negat rod POCT U GLU (test code = 3256) negative Negative - Negati ve POCT U KETONE (test code = 3258) n/a Negative - Neg ative POCT U BLD (test code = 3257) n/a Negative - Negati ve [facility] [id number] 08:56:00* Test Item Value Reference Range Interpretation Comme nts AB RUBELLA IGG (test code = RUBGAB) Reactive IU/mL Non React A In accordance wi th the NCCLS guidelines and based on the WHOInternational Standard, a positive Anti-Rubella serum is anindicator of immune status.These results were obtained using the [employer] XP Rubella IgGAssay. Values obtained from other lever miller's assaymethods may not be used interchangeably. AB RUBELLA [id number] 08:55:00* Test Item Value Reference Range Interpretation Comme nts AB RUBELLA IGG (test code = RUBGAB) Reactive IU/mL Non React A In accordance wi th the NCCLS guidelines and based on the WHOInternational Standard, a positive Anti-Rubella serum is anindicator of immune status.These results were obtained using the [employer] XP Rubella IgGAssay. Values obtained from other lever miller's assaymethods may not be used interchangeably. RAPID PLASMA [id number] 08:13:00* Test Item Value Reference Range Interpretation Comme [facility] RAPID PLASMA REAGIN (test co de = RPR) NON-REACTIVE NON-REACT ACCEPTABLE [facility] TEMP:21 (20-30 CELSIUS)RPMS:100 (98-102 RPMS)HIV-1/2 LOT AND PROCEDURAL CONTROLLOT # [id number].DATE 07/17/2022ROCEDURAL CONTROL ACCEPTABLE Y/N YHBSAG [id number] 08:13:00* Test Item Value Reference Range Interpretation Comme nts AG HEPATITIS B SURFACE (test code = HBSAG) Negative Negative Performed At : , [facility] [address], [id number], [place], Phone: [phone] ACCEPTABLE [facility] TEMP:21 (20-30 CELSIUS)RPMS:100 (98-102 RPMS)HIV-1/2 LOT AND PROCEDURAL CONTROLLOT # [id number].DATE 07/17/2022ROCEDURAL CONTROL ACCEPTABLE Y/N YHIV 1 2 ANTIBODY [id number] 08:13:00* Test Item Value Reference Range Interpretation Comme [facility] HIV 1/2 RAPID SCREEN (test code = [id number]) NONREACTIVE NONREACTIVE Detects HIV-sp ecific antibodies and HIV-p24 antigen. AG HIV1 P24 (test code = [id number]) NONREACTIVE NONREACTIVE ACCEPTABLE [facility] TEMP:21 (20-30 CELSIUS)RPMS:100 (98-102 RPMS)HIV-1/2 LOT AND PROCEDURAL CONTROLLOT # [id number].07/17/2022ROCEDURAL CONTROL ACCEPTABLE Y/N YCBC W/AUTO [id number] 05:29:00* Test Item Value Reference Range Interpretation Comme [facility] WHITE BLOOD CELL (test code = WBC) 14.1 K/mm3 4.8-10.8 H RED BLOOD CELL (test code = RBC) 2.27 M/mm3 4.2-5.4 L HEMOGLOBIN (test code = HGB) 7.0 gm/DL 12.0-16.0 L NOTIFIED RN AMAC IO HGB DROP HEMATOCRIT (test code = HCT) 21.2 % 34.7-43.3 L MEAN CELL VOLUME (test code = MCV) 93.4 fL 81-99 N MEAN CELL HGB (test code = MCH) 30.8 pg 27-31 N MEAN CELL HGB CONCETRATION (test code = MCHC) 33.0 gm/dL 33-37 N RED CELL DISTRIBUTION WIDTH (test code = RDW) 13.9 % 11.5-14.5 N PLATELET COUNT (test code = PLT) 199 X10(3) 130-400 N MEAN PLATELET VOLUME (test code = MPV) 10.8 fL 9.4-12.4 N NEUTROPHIL % (test code = NT%) 65.4 % 51.5-79.7 N IMMATURE GRANULOCYTE % (test code = IG%) 1.100 % 0.108-0.322 H LYMPHOCYTE % (test code = LY%) 25.6 % 14-40 N MONOCYTE % (test code = MO%) 7.4 % 4.0-10.2 N EOSINOPHIL % (test code = EO%) 0.1 % 0-4.1 N BASOPHIL % (test code = BA%) 0.4 % 0.1-0.7 N NUCLEATED RBC % (test code = NRBC%) 0.0 % 0-0 N NEUTROPHIL # (test code = NT#) 9.2 K/mm3 2.5-8.6 H IMMATURE GRANULOCYTE # (test code = IG#) 0.160 K/mm3 0.0052-0.0224 H LYMPHOCYTE # (test code = LY#) 3.6 K/mm3 1.1-3.6 N MONOCYTE # (test code = MO#) 1.1 K/mm3 0.3-0.9 H EOSINOPHIL # (test code = EO#) 0.02 # 0.0-0.4 N BASOPHIL # (test code = BA#) 0.05 K/mm3 0.0-0.2 N NUCLEATED RBC # (test code = NRBC#) 0.00 K/mm3 0.00-0.20 N IS CBC W/DIFF ORDERED BY JOAQUINA PANPROTHROMBIN [id number] 13:51:00* Test Item Value Reference Range Interpretation Comments PROTHROMBIN TIME PATIENT (test code = PTP) 10.1 SECONDS 9.1-12.0 N INTERNATIONAL NORMAL RATIO (test code = INR) 0.94 0.93-1.2 N Recommended Ther apeutic PT Ratios For Oral AnticoagualantTherapy. CONDITION INT'L NORMALIZED PT R--------- Prophylaxis of venous thrombosis 2.0 - 3.0in high risk medical or surgicalpatients, treatment of venousthrombosis, prevention of embolism. Prevention of recurrent embolism, 3.0 - 4.5or treatment of patients with mechanicalprosthetic heart valves. IS THE PATIENT ON ANY ANTICOAGULANTS? NOCOMMENT LINE S/P CSECTION, BLEEDING THROMBOPLASTIN TIME [id number] 13:51:00* Test Item Value Reference Range [facility]ation [facility] PARTIAL (test code = PTT) 29.9 SECONDS 23.0-32.0 N IS THE PATIENT ON ANY ANTICOAGULANTS? NOCOMMENT LINE S/P CSECTION, BLEEDING [id number] 13:51:00* Test Item Value Reference Range Interpretation [facility] FIBRINOGEN (test code = FIB) 446 MG/DL 179-445 H IS THE PATIENT ON ANY ANTICOAGULANTS? NOCOMMENT LINE S/P CSECTION, BLEEDING FIBRIN SPLIT [id number] 13:51:00* Test Item Value Reference Range Interpretation [facility] FIBRIN SPLIT PRODUCT (test c ode = FSP) >80 MCG/ML 0.0-4.9 A IS THE PATIENT ON ANY ANTICOAGULANTS? NOCOMMENT LINE S/P CSECTION, BLEEDINGD- DIMER [id number] 13:51:00* Test Item Value Reference Range Interpretation [facility] D-DIMER QUANT (test code = DDIMER) 15.56 mg/L 0.19-0.52 H *A result of gre ater or equal to 0.50 mg/L FEU is consideredpositive, a result of <0.50 is considered negative for DVTor PE. IS THE PATIENT ON ANY ANTICOAGULANTS? NOCOMMENT LINE S/P CSECTION, BLEEDINGCBC W/AUTO [id number] 12:55:00* Test Item Value Reference Range Interpretation Comme nts WHITE BLOOD CELL (test code = WBC) 22.4 K/mm3 4.8-10.8 H RED BLOOD CELL (test code = RBC) 3.42 M/mm3 4.2-5.4 L HEMOGLOBIN (test code = HGB) 10.5 gm/DL 12.0-16.0 L HEMATOCRIT (test code = HCT) 32.3 % 34.7-43.3 L MEAN CELL VOLUME (test code = MCV) 94.4 fL 81-99 N MEAN CELL HGB (test code = MCH) 30.7 pg 27-31 N MEAN CELL HGB CONCETRATION ( test code = MCHC) 32.5 gm/dL 33-37 L RED CELL DISTRIBUTION WIDTH (test code = RDW) 14.0 % 11.5-14.5 N PLATELET COUNT (test code = PLT) 265 X10(3) 130-400 N MEAN PLATELET VOLUME (test c ode = MPV) 10.9 fL 9.4-12.4 N NEUTROPHIL % (test code = NT%) 88.9 % 51.5-79.7 H IMMATURE GRANULOCYTE % (test code = IG%) 1.100 % 0.108-0.322 H LYMPHOCYTE % (test code = LY%) 7.6 % 14-40 L MONOCYTE % (test code = MO%) 2.2 % 4.0-10.2 L EOSINOPHIL % (test code = EO%) 0.0 % 0-4.1 N BASOPHIL % (test code = BA%) 0.2 % 0.1-0.7 N NUCLEATED RBC % (test code = NRBC%) 0.0 % 0-0 N NEUTROPHIL # (test code = NT#) 19.9 K/mm3 2.5-8.6 H IMMATURE GRANULOCYTE # (test code = IG#) 0.240 K/mm3 0.0052-0.0224 H LYMPHOCYTE # (test code = LY#) 1.7 K/mm3 1.1-3.6 N MONOCYTE # (test code = MO#) 0.5 K/mm3 0.3-0.9 N EOSINOPHIL # (test code = EO#) 0.00 # 0.0-0.4 N BASOPHIL # (test code = BA#) 0.04 K/mm3 0.0-0.2 N NUCLEATED RBC # (test code = NRBC#) 0.00 K/mm3 0.00-0.20 N IS CBC W/DIFF ORDERED BY ? YESPROTHROMBIN [id number] 07:53:00* Test Item Value Reference Range Interpretation Comments PROTHROMBIN TIME PATIENT (test code = PTP) 9.9 SECONDS 9.1-12.0 N INTERNATIONAL NORMAL RATIO (test code = INR) <0.93 0.93-1.2 L Recommended Ther apeutic PT Ratios For Oral AnticoagualantTherapy. CONDITION INT'L NORMALIZED PT R--------- Prophylaxis of venous thrombosis 2.0 - 3.0in high risk medical or surgicalpatients, treatment of venousthrombosis, prevention of embolism. Prevention of recurrent embolism, 3.0 - 4.5or treatment of patients with mechanicalprosthetic heart valves. IS THE PATIENT ON ANY ANTICOAGULANTS? NOTHROMBOPLASTIN TIME [id number] 07:53:00* Test Item Value Reference Range Interpretation Comme nts THROMBOPLASTIN TIME PARTIAL (test code = PTT) 29.1 SECONDS 23.0-32.0 N IS THE PATIENT ON ANY ANTICOAGULANTS? NOCOVID 19 Asymptomatic IH [id number] 07:20:00* Test Item Value Reference Range Interpretation Comments COVID 19 Asymptomatic IH AG (test code = COVNONPUIAG) Presumptive Negative Presump.Neg Results are for the identification of DCKB-HtY-2qdneotzmkrmn protein antigen. Antigen is generallydetectable in upper respiratory specimens during the acutephase of infection. Positive results indicate the presenceof viral antigens, but clinical correlation with patienthistory and other diagnostic information is necessary todetermine infection status. Positive results do not rule outbacterial infection or co-infection with other viruses. Theagent detected may not be the definite cause of disease.Laboratories within the [facility] and its territoriesare required to report all positive results to [facility] public health authorities. Negative results should be treated as presumptive andconfirmed with molecular assay, if necessary for patientmanagement. Negative results do not rule out COVID-19 andshould not be used as the sole basis for treatment orpatient management decisions, including infection controldecisions. Negative results should be considered in thecontext of a patient's recent exposures, history andpresence of clinical signs and symptoms consistent withCOVID-19. The Najma SARS Antigen KAVITHA is intended for use by trainedclinical personnel and individuals trained in point of caresettings. The Najma SARS Antigen KAVITHA is only for use underthe Food and Drug Administration's Emergency UseAuthorization. LOT # [id number].DATE 08/05/22PROCEDURAL CONTROL ACCEPTABLE Y/N YCBC W/AUTO DIFF 2021-07-25 07:18:00* Test Item Value Reference Range Interpretation Comme nts WHITE BLOOD CELL (test code = WBC) 11.4 K/mm3 4.8-10.8 H RED BLOOD CELL (test code = RBC) 3.88 M/mm3 4.2-5.4 L HEMOGLOBIN (test code = HGB) 11.9 gm/DL 12.0-16.0 L HEMATOCRIT (test code = HCT) 36.3 % 34.7-43.3 N MEAN CELL VOLUME (test code = MCV) 93.6 fL 81-99 N MEAN CELL HGB (test code = MCH) 30.7 pg 27-31 N MEAN CELL HGB CONCETRATION ( test code = MCHC) 32.8 gm/dL 33-37 L RED CELL DISTRIBUTION WIDTH (test code = RDW) 13.9 % 11.5-14.5 N PLATELET COUNT (test code = PLT) 255 X10(3) 130-400 N MEAN PLATELET VOLUME (test c ode = MPV) 10.6 fL 9.4-12.4 N NEUTROPHIL % (test code = NT%) 65.7 % 51.5-79.7 N IMMATURE GRANULOCYTE % (test code = IG%) 1.300 % 0.108-0.322 H LYMPHOCYTE % (test code = LY%) 26.7 % 14-40 N MONOCYTE % (test code = MO%) 5.5 % 4.0-10.2 N EOSINOPHIL % (test code = EO%) 0.4 % 0-4.1 N BASOPHIL % (test code = BA%) 0.4 % 0.1-0.7 N NUCLEATED RBC % (test code = NRBC%) 0.0 % 0-0 N NEUTROPHIL # (test code = NT#) 7.5 K/mm3 2.5-8.6 N IMMATURE GRANULOCYTE # (test code = IG#) 0.150 K/mm3 0.0052-0.0224 H LYMPHOCYTE # (test code = LY#) 3.0 K/mm3 1.1-3.6 N MONOCYTE # (test code = MO#) 0.6 K/mm3 0.3-0.9 N EOSINOPHIL # (test code = EO#) 0.05 # 0.0-0.4 N BASOPHIL # (test code = BA#) 0.05 K/mm3 0.0-0.2 N NUCLEATED RBC # (test code = NRBC#) 0.00 K/mm3 0.00-0.20 N IS CBC W/DIFF ORDERED BY ? YESURINALYSIS W/O [id number] 07:16:00* Test Item Value Reference Range Interpretation Comme nts UA COLOR (test code = COLU) Colorless YELLOW UA APPEARANCE (test code = APPU) Turbid CLEAR UA GLUCOSE DIPSTICK (test co de = DGLUU) Normal NORMAL UA BILIRUBIN DIPSTICK (test code = BILU) Negative NEGATIVE UA KETONE DIPSTICK (test cod e = KETU) Negative NEGATIVE UA SPECIFIC GRAVITY (test co de = SGU) 1.004 1.000-1.032 N UA BLOOD DIPSTICK (test code = DELL) Negative NEGATIVE UA PH DIPSTICK (test code = GILMER) 7.0 5.0-9.0 N UA PROTEIN DIPSTICK (test co de = PROU) Negative NEGATIVE UA UROBILINIOGEN DIPSTICK (t est code = URO) Normal NORMAL UA NITRITE DIPSTICK (test co de = SUHAS) Negative NEGATIVE UA LEUKOCYTE ESTERASE DIPSTI CK (test code = LEUU) 25 NEGATIVE A SOURCE: URINESPECIMEN DESCRIPTION: CMCUA [id number] 07:16:00* Test Item Value Reference Range Interpretation Comme nts UA WBC (test code = WBCU) 3-5 0-5 UA RBC (test code = RBCU) 0-2 0-5 UA EPITHELIAL CELLS (test code = EPIU) 21-50 0-10 UA BACTERIA (test code = BACU) OCC NONE SEEN SOURCE: URINESPECIMEN DESCRIPTION: [facility] History and Physical Notes Date/Time Note Provider Source 2023-02-08 04:07:12 Formatting of this n ote is different from the original. TRIAGE HISTORY & PHYSICAL IDENTIFYING DATA Svetlana Banerjee is 22 year old, /White, 38w3d, female with ROB 02/19/2023, by Patient Reported. : 2000 Primary Care Physician: Serafin Monterroso CHIEF COMPLAINT Abdominal cramping HISTORY OF PRESENT ILLNESS vSetlana Banerjee is a 22 year old female @ 38w3d presented for abdominal cramping that started around 8 pm. States that it comes and goes every 5-10 minutes. Pain is 8/10. +FM. No VB or LOF. No pre-eclampsia sx or other complaints. PAST OBSTETRIC HISTORY OB History Para Term AB Living 4 2 2 1 2 SAB IAB Ectopic Multiple Live Births 1 2 # Outcome Date GA Lbr Herb/2nd Weight Sex Delivery Anes PTL Lv 4 Current 3 Term 07/25/21 37w0d 2948 g M CS-Unspec N SHYAM 2 SAB 2020 8w0d 1 Term 01/04/19 37w0d 2863 g F CS-Unspec N SHYAM Comments: pt needed blood transfusion after delievery Complications: Eclampsia PAST MEDICAL HISTORY Problem list: Patient Active Problem List Diagnosis Date Noted Normal labor 02/08/2023 Pelvic pain in 02/03/2023 High-risk in third trimester 12/22/2022 Previous section 12/22/2022 Rh negative status during in third trimester 12/22/2022 History of blood transfusion 12/22/2022 History of hemorrhage 12/22/2022 History of eclampsia 12/22/2022 Operations: Past Surgical History: Procedure Laterality Date SECTION N/A 2018 SECTION N/A 2021 Past Medical History: Diagnosis Date STD (sexually transmitted disease) CURRENT HEALTH STATUS Medications: Current Facility-Administered Medications Medication Dose Route Frequency Last Rate Last Admin carboprost (HEMABATE) injection 250 mcg 250 mcg Intramuscular Q2HPRN ceFAZolin (ANCEF) 2,000 mg in NaCl 0.9% (NS) 100 mL MINI-BAG 2,000 mg IV Piggyback O.R. HOLDING ONCE D5W-LR IV infusion 1,000 mL 1,000 mL IV Infusion TITRATE lactated ringers IV infusion 500 mL 500 mL IV Infusion PRN - SEE INSTRUCTIONS lidocaine 1% (PF) (XYLOCAINE) injection 0.3 mL 0.3 mL Infiltration PRN - SEE INSTRUCTIONS methylergonovine (METHERGINE) injection 0.2 mg 0.2 mg Intramuscular Q4HPRN miSOPROStoL (CYTOTEC) tablet 200 mcg 200 mcg Rectal PRN oxytocin (PITOCIN) 30 units in NS 500 mL IV infusion 600 mL/hr IV Infusion PRN sodium citrate-citric acid (BICITRA) 500-334 mg/5 mL solution 30 mL 30 mL Oral PRE-PROCEDURE ONCE terbutaline (BRETHINE) injection 0.25 mg 0.25 mg Subcutaneous PRN tranexamic acid (CYKLOKAPRON) 1,000 mg in NaCl 0.9% (NS) 250 mL piggyback 1,000 mg IV Piggyback PRN Allergies and drug reactions: Patient has no known allergies. HOME MEDICATIONS Medications Prior to Admission Medication Sig Dispense Refill Last Dose PNV [id number] 1-DSS-DHA ORAL Take by mouth. Taking SOCIAL HISTORY Tobacco History: Social History Tobacco Use Smoking Status Never Smokeless Tobacco Never Drug History: Social History Substance and Sexual Activity Drug Use Not Currently Types: Marijuana Alcohol History: Social History Substance and Sexual Activity Alcohol Use Not Currently FAMILY HISTORY Family History Problem Relation Age of Onset Hyperlipidemia Mother Lymphoma Mother Hyperlipidemia Father Hypertension Father REVIEW OF SYSTEMS General: negative Constitutional: negative Eyes: negative ENT/Mouth: negative Cardiovascular: negative Respiratory: negative Gastrointestinal:negative Genitourinary: see HPI. + whitish discharge Musculoskeletal: negative Skin/breast: negative Neurological: negative Psychiatric: negative Endocrine: negative Hemat/Lymph: negative Allergic/Immuno:none VITAL SIGNS BP: -- Temp: [36.6 ?C (97.9 ?F)] Temp source: Temporal Artery (02/08 0146) Pulse: [60] Resp: [17] SpO2: [100 %] Height: -- Weight: -- BMI (calculated): -- PHYSICAL EXAMINATIONS Gen: alert and oriented, well appearing, no distress CV: RRR, normal S1/S2, no m/r/g Resp: normal work of breathing, lungs CTAB Abd: gravid, soft, NTTP Ext: no calf tenderness or edema : SVE /high REVIEW OF LABORATORY, PATHOLOGY, AND RADIOLOGY DATA Lab results: Type & Screen HIV Hep B Syphilis Chlamydia No results found for: "IABORH" No results found for: "HIVMULTIPLEX" No components found for: "HBSHBSAG" No results found for: "SYPIGG" C. trachomatis Nucleic Acid Date Value Ref Range Status 01/27/2023 Negative Negative Final No results found for: "IAT" Varicella Rubella Glucose Group B Strep CBC No results found for: "VZVIGG" No results found for: "RUBG" No results found for: "CPDT6DY" No results found for: "CGBS" HGB Date Value Ref Range Status 01/27/2023 11.0 (L) 11.6 - 15.0 g/dL Final HCT Date Value Ref Range Status 01/27/2023 33.5 (L) 35.7 - 45.2 % Final PLT Date Value Ref Range Status 01/27/2023 222 166 - 358 10*3/?L Final Active Hospital Problems Diagnosis Date Noted Normal labor 02/08/2023 High-risk in third trimester 12/22/2022 History of blood transfusion 12/22/2022 History of eclampsia 12/22/2022 History of hemorrhage 12/22/2022 Previous section 12/22/2022 Rh negative status during in third trimester 12/22/2022 Resolved Hospital Problems No resolved problems to display. Present on Admission: High-risk in third trimester History of blood transfusion History of eclampsia History of hemorrhage Previous section Rh negative status during in third trimester Normal labor ASSESSMENT AND PLAN Svetlana Banerjee is a 22 year old at 38w3d who presents with abdominal cramping, admitted for delivery due to previous CD x 2 with contractions and cervical change. Previous CD x 2 and uterine contractions - SVE closed on presentation. SVE 1 cm on my exam. - patient last ate at 9 pm. Will proceed with repeat CD this morning unless clinically indicated otherwise. Or team notified. Hx of hemorrhage and hx of blood transfusion - hemoglobin 11 on 01/27/23 - CBC ordered PVT of Dr. Conway, please see OB Summary for more details Melo Conway MD [facility] Notes Date/Time Note Provider Source 2023-02-19 16:30:42 Formatting of this n ote might be different from the original. Returned pt call. Verified . Pt requested 02.23 for appointment. Pt scheduled 02.23.23 at 4 pm. Sandra Mendoza [facility] 2023-02-18 18:07:27 Formatting of this n ote might be different from the original. Svetlana Banerjee is a 22 year old female Pt calling to reschedule her one week incision check follow up with Dr. Conway I couldn't find any appt available Please call pt to schedule Merary Zuniga [facility] 2023-02-10 11:36:59 Formatting of this n ote might be different from the original. Problem: Complications of hemorrhage (risk or actual) Goal: Absence of active bleeding 02/10/2023 1136 by Raisa Rebolledo RN Outcome: Resolved 02/10/2023 1135 by Raisa Rebolledo RN Outcome: Adequate for discharge Goal: Absence of complications 02/10/2023 1136 by Raisa Rebolledo RN Outcome: Resolved 02/10/2023 1135 by Raisa Rebolledo RN Outcome: Adequate for discharge Problem: Venous Thromboembolism, (actual or risk of) Goal: Absence of venous thromboembolism (Risk) 02/10/2023 1136 by Raisa Rebolledo RN Outcome: Resolved 02/10/2023 1135 by Raisa Rebolledo RN Outcome: Adequate for discharge Goal: Prevent further complications associated with VTE diagnosis (Actual) 02/10/2023 1136 by Raisa Rebolledo RN Outcome: Resolved 02/10/2023 1135 by Raisa Rebolledo RN Outcome: Adequate for discharge Problem: Falls, Risk of Goal: Absence of falls 02/10/2023 1136 by Raisa Rebolledo RN Outcome: Resolved 02/10/2023 1135 by Raisa Rebolledo RN Outcome: Adequate for discharge LINDA Rebolledo RN [facility] 2023-02-10 11:36:38 Formatting of this n ote might be different from the original. Problem: Complications of hemorrhage (risk or actual) Goal: Absence of active bleeding Outcome: Adequate for discharge Goal: Absence of complications Outcome: Adequate for discharge Problem: Venous Thromboembolism, (actual or risk of) Goal: Absence of venous thromboembolism (Risk) Outcome: Adequate for discharge Goal: Prevent further complications associated with VTE diagnosis (Actual) Outcome: Adequate for discharge Problem: Falls, Risk of Goal: Absence of falls Outcome: Adequate for discharge Problem: Discharge Planning - Goal: Adequate for discharge Outcome: Adequate for discharge Goal: Mood stable Outcome: Adequate for discharge [facility] 2023-02-10 10:19:36 Summary: F ollow up This note was copied from a baby's chart. Evaluation Situation Follow up visit Background Baby Boy is 2 days old, born weighing 3350g, and has lost -6.57% of weight. Gestational Age: 38w3d at INFANT FEEDING STATUS Expressed breast milk supplementation via MATERNAL STATUS Pumping Hand expressing Assessment & Recommendation Visited mom to offer assistance with . Mom stats she need help with latching to the left breast. Mom has a compression stripe on left nipple. I discussed with mom the importance of achieving a deep latch to help infant transfer more milk and to help prevent further nipple damage. I assisted mom with positioning the football hold. While placing infant to the breast infant began to spit up colostrum and continued to gag. Infant was placed skin to skin. Mom was encouraged to hold baby skin to skin for 30 minutes and re-attempt latch. will follow up in 30 minutes. 1120- Returned to assist mom with . I assisted mom with in the football hold on the left. Mom was able to achieving a deep latch using the football hold. Mom denies nipple pain while feeding. Infant latched with audible swallows. Mom instructed on how to contact Electronics Test Engineer for assistance with feedings or to answer questions while in the hospital. Mom verbalized understanding. CYNTHIA Jefferson, RNC, IBCLC Gini Serrano RN [facility] 2023-02-10 02:29:57 Formatting of this n ote might be different from the original. Problem: Complications of hemorrhage (risk or actual) Goal: Absence of active bleeding Outcome: Progressing as expected Goal: Absence of complications Outcome: Progressing as expected Problem: Venous Thromboembolism, (actual or risk of) Goal: Absence of venous thromboembolism (Risk) Outcome: Progressing as expected Goal: Prevent further complications associated with VTE diagnosis (Actual) Outcome: Progressing as expected Problem: Falls, Risk of Goal: Absence of falls Outcome: Progressing as expected Problem: Discharge Planning - Goal: Adequate for discharge Outcome: Progressing as expected Goal: Mood stable Outcome: Progressing as expected Hortencia Liz RN [facility] 2023-02-09 13:10:29 Summary: Initial Vis it This note was copied from a baby's chart. Evaluation Situation Initial visit Background Baby Boy is 1 day old, born weighing 3350g, and has lost -3.58 of weight. Gestational Age: 38w3d at INFANT FEEDING STATUS Exclusively MATERNAL STATUS Assessment, Recommendations, Education Assisted mom with positioning and asymmetrical latch technique in the football hold on the right. Initially the baby was latched shallow with nipple shield, but after removing the nipple shield and giving more neck and back support she was able to achieve a deeper latch. The baby suckled in coordinated bursts with audible swallows. Encouraged mom to stimulate the baby to keep the baby engaged in feeding and actively sucking while at the breast. Mom denied nipple pain with feeding. Mom instructed on how to contact Electronics Test Engineer for assistance with feedings or to answer questions while in the hospital. Mom also given Warm Line and Breast Milk [employer]ist[employer] information for help once discharged home. Verbalized understanding. CYNTHIA Jefferson, RN, IBCLC [facility] 2023-02-09 08:16:48 Formatting of this n ote might be different from the original. Problem: Complications of hemorrhage (risk or actual) Goal: Absence of active bleeding Outcome: Progressing as expected Goal: Absence of complications Outcome: Progressing as expected Problem: Venous Thromboembolism, (actual or risk of) Goal: Absence of venous thromboembolism (Risk) Outcome: Progressing as expected Goal: Prevent further complications associated with VTE diagnosis (Actual) Outcome: Progressing as expected Problem: Falls, Risk of Goal: Absence of falls Outcome: Progressing as expected Problem: Discharge Planning - Goal: Adequate for discharge Outcome: Progressing as expected Goal: Mood stable Outcome: Progressing as expected [facility] 2023-02-08 19:11:36 Formatting of this n ote might be different from the original. Problem: Complications of hemorrhage (risk or actual) Goal: Absence of active bleeding Outcome: Progressing as expected Goal: Absence of complications Outcome: Progressing as expected Problem: Venous Thromboembolism, (actual or risk of) Goal: Absence of venous thromboembolism (Risk) Outcome: Progressing as expected Goal: Prevent further complications associated with VTE diagnosis (Actual) Outcome: Progressing as expected Problem: Falls, Risk of Goal: Absence of falls Outcome: Progressing as expected Problem: Discharge Planning - Goal: Adequate for discharge Outcome: Progressing as expected Goal: Mood stable Outcome: Progressing as expected [facility] 2023-02-08 17:36:28 Formatting of this n ote might be different from the original. Problem: Complications of hemorrhage (risk or actual) Goal: Absence of active bleeding Outcome: Progressing as expected Goal: Absence of complications Outcome: Progressing as expected Problem: Venous Thromboembolism, (actual or risk of) Goal: Absence of venous thromboembolism (Risk) Outcome: Progressing as expected Goal: Prevent further complications associated with VTE diagnosis (Actual) Outcome: Progressing as expected Problem: Falls, Risk of Goal: Absence of falls Outcome: Progressing as expected Problem: Discharge Planning - Goal: Adequate for discharge Outcome: Progressing as expected Goal: Mood stable Outcome: Progressing as expected [facility] Mila Bonilla RN [facility] 2023-02-08 16:23:18 Formatting of this n ote might be different from the original. Problem: Complications of hemorrhage (risk or actual) Goal: Absence of active bleeding Outcome: Progressing as expected Goal: Absence of complications Outcome: Progressing as expected Problem: Venous Thromboembolism, (actual or risk of) Goal: Absence of venous thromboembolism (Risk) Outcome: Progressing as expected Goal: Prevent further complications associated with VTE diagnosis (Actual) Outcome: Progressing as expected Problem: Falls, Risk of Goal: Absence of falls Outcome: Progressing as expected Problem: Intrapartum process (including labor pain) Goal: Absence of or reduction of complications of labor Outcome: Resolved Goal: Able to cope with pain Outcome: Resolved Goal: Adequate to move to next level of care Outcome: Resolved Goal: Reduction in pain sensation Outcome: Resolved [facility] 2023-02-08 09:30:51 Formatting of this n ote is different from the original. Delivery Date: 02/08/2023 Delivery Time: 7:56 AM DELIVERY BY SECTION Date of Service: : 02/08/2023 at 7:56 AM Admitted for: repeat CD at 38 wks due to previous CD x 2 and regular uterine contractions, Repeat Lower uterine transverse section with no extension, no BTL, Pfannenstiel, Closed with suture, QBL 500 cc, No complications, Findings: minimal adhesions Delivery Summary [place] Sex: male Weight: 3350 g 1 Minute 5 Minute 10 Minute Totals: 8 9 Primary Indication: Svetlana Banerjee is a 22 year old female @ 38w3d presented with painful regular uterine contractions and previous CD x 2. Cervix changed from closed to 1 cm. Patient admitted for delivery with repeat CD. Hx of hemorrhage and hx of blood transfusion The patient was taken to the operating room for a repeat section due to: Elective Repeat Section at 38w3d weeks. Procedures: Repeat Lower uterine transverse section with no extension Specimens Removed: Placenta Surgeon: Melo Conway MD Report: Prophylactic antibiotic, Ancef and Azithromycin was given before patient was taken to OR. After arrival to the operating room patient was placed in the supine position with left lateral tilt after administration of spinal anesthesia. Laparotomy A pfannenstiel incision was made through the anterior abdominal wall with #10 scalpel. The incision was extended sharply with the #10 scalpel through the subcutaneous tissue to the level of fascia. The fascia was entered sharply with a #10 scalpel (Pfannenstiel) in the midline and extended in semi-elliptical fashion with Ordonez scissor. The underlying muscles were dissected off the overlying fascia by grasping the superior aspect of fascia with two nick clamps and blunt dissection was used along the midline. The fascia was further from rectus muscle with Ordonez scissor and/or cautery. In similar fashion, the lower aspect of fascia was also grsaped with two Nick clamps and both blunt and sharp dissection was used to separate fascia from rectus muscle. The rectus muscles were in the midline sharply with Ordonez scissor dissection and sharply with scalpel. The peritoneum was then entered sharply by grasping and tenting the peritoneum with two hemostats and enter with Metzenbaum scissor. The peritoneal incision was then extended superiorly and inferiorly under direct visualization with care being taken to avoid bladder and bowel. There were minimal filmy adhesions which were taken down with autery and/or Metzebaum scissor. The peritoneal incision was enlarged bluntly by lateral traction from the surgeon's and household assistant's hand. Delivery A bladder flap was developed by grasping with English forcep and enter with Metzenbaun scissor. Then sharp and blunt dissection with Metzenbaum scissor and fingers were performed. A low transverse hysterotomy was made then with #10 scalpel and extended laterally and cephalad with fingers in a low transverse fashion with Manu Flores technique with care being taken to avoid injury to the fetus. The amniotic (membranes) were then entered with spontaneous rupture of membrane, and the amniotic fluid was noted to be clear . The head was delivered manually without aid of vaginal hand. The head was flexed and delivered through the hysterotomy incision in a non-traumatic fashion with aid of fundal pressure applied by the pastrycook's assistant surgeon . The body was delivered with traction on the head along with fundal pressure. After delivery of body-bulb suction was performed from oropharynx and nostril with removal of clear amniotic fluid. Fetus was delivered in cephalic presentation. With delivery the baby, no extension was noted. Placenta was delivered spontaneously with steady traction on cord and manual separation of placenta from uterine wall. Closure Uterine cavity was cleaned after placental delivery with lap sponge x 2. The hysterotomy was closed in one layer with stitches using 1-0 Monocryl with continuous locking stitches. Hemostasis was achieved as needed with electrocautery. The ovaries/tubes/uterine surface were evaluated. They were found to be normal. Rectus muscle was re-approximated with 2-0 Monocryl. Fascia was closed with running stitches using 0-Biosyn . Hemostasis was checked for and found to be adequate. The subcutaneous tissue was irrigated and hemostasis was achieved where needed with electrocautery. The skin was then closed with subcutaneous stitches using 3-0 Vicryl sutures. The incision was cleaned and covered with a compression bandage and the procedure considered to be complete at this time. Intraoperative Complications: None EBL: 500 Uterotonics: 30 units of pitocin mixed in 500 cc of LR Disposition: The patient tolerated the procedure well. She was recovered in the Labor and Delivery Room with routine care in stable condition, with a contracted uterus and normal transvaginal bleeding. The infant was sent to [facility]. The placenta was not sent to pathology. Melo oCnway MD 02/08/2023 9:36 AM [facility] 2023-02-08 01:29:23 Formatting of this n ote might be different from the original. ; 39 wks preg with abd cramps, vag discharge, no fluids leaking. Dr. Conway pt. Report to [place] via [facility] CN phone. Pt to [facility] via and this RN Alize Vasquez RN [facility] 2023-02-03 13:00:00 Formatting of this n ote might be different from the original. Age: [age] year old GA: 37w5d - Doing well - Pelvic pain in : Advise maternity belt, rest prn, tylenol prn - GBS positive on 01/27/23 - CD x 2: repeat CD at 39 wks on 02/17/23 unless clinically indicated otherwise - Daily kick counts and labor precautions given - follow-up in 1 wk for PN [facility] 2023-02-03 13:00:00 Addended by: NATHALIE DENIS RN on: 02/03/2023 05:03 PM Modules accepted: Orders [facility] 2023-01-27 16:15:00 Formatting of this n ote is different from the original. Images from the original note were not included. Venipuncture collection performed by clean technique on the left anticubitus. Total of 1 attempts were made. Slight pressure and a bandage/dressing were applied to the site(s). The patient experienced no complications. The following specimens were processed according to instructions and sent to [facility] laboratories per lab order on 01/27/2023 : LT BLUE SST RED LAV 1 PPT DK GREEN (LiHep) DK GREEN (SodH) CUEVA DK BLUE (K2) DK BLUE (S) ACD Blood Culture NIPT/NTD [facility] 2023-01-27 16:00:00 Formatting of this n ote might be different from the original. Age: [age] year old GA: 36w5d - Intermittent pelvic pressure: Declined SVE. Discussed discomforts. -CD x 2: Repeat CD at 39 weeks, desires 02/17/2023 due to 's work schedule This reviews what Dr. Conway talked about at your 36 week talk: 1. Go to Labor and Delivery when your contractions are 5-7 minutes apart and you have been able to time them for an hour. If you live more than 30 minutes from the hospital, then go when they are 10 minutes apart and you have been able to time them for an hour. 2. BUT, there are 4 reasons to go to Labor and Delivery REGARDLESS of what else is happening, whether you are [place] or not: 1. If your water breaks - - - it may be a gush or a constant trickle. If you are not sure, always come in to be checked. 2. Bleeding like your period. 3. If your baby's movements are less than 10 in an hour. If you are concerned this might be the case, drink a tall glass of cold fluids, lay down on your side on the couch or your bed and see how long it takes to note 10 movements - if less than 10, this needs to be evaluated immediately. 4. Contractions or Pain that is continuous. Normal labor contractions last only 45 seconds - 1 minute. Cephalic presentation GC/CT and GBS obtained, CBC ordered Zika precautions reviewed Contraception PP: Depo Delivery consent signed today RTC in 1 wk for PN [facility] 2023-01-13 13:45:00 Formatting of this n ote might be different from the original. Age: [age] year old GA: 34w5d - Intermittent cramps and low back pain x 2 wks: Advise maternity belt, rest prn, tylenol prn - Have not received record. Will follow-up - CD x 2: repeat CD at 39 wks, desires 02/13/23 - 3rd trimester teaching done- reviewed S/S of PTL (contractions, leakage of fluid and Vaginal bleeding) and also Kick Counts. Also dicussed Rogers-Laird, pelvic and lower back pains- expectations and differenced with S/S of PTL She plans to breast fed BC options reviewed- opted for Depo Call Center Rn: Ludy Encourage patient to bring in wishes if she has any. - Daily kick counts - follow-up in 2 wks for PN [facility] 2021-07-27 08:13:00 [id number] [facility] [address] [place], [place], [address] PATIENT NAME: SVETLANA BANERJEE ADMIT DATE: 07/25/21 ACCOUNT NO: [id number] ROOM NO: [facility] AGE: 20 REPORT TYPE: DISCHARGE SUMMARY SEX: F ADMITTING PHYSICIAN:Chano Mcdaniels MD ATTENDING PHYSICIAN:Chano Mcdaniels MD ADMISSION DATE: 07/25/2021 DISCHARGE DATE: 07/27/2021 01:00:00 HOSPITAL COURSE: The patient was admitted on July 25 at 37 plus weeks, in active labor with history of previous section, taken for emergent section, delivered a viable infant, Apgars of 9 and 9 at 1 and 5 minutes respectively, transferred to recovery room and subsequently floor where postop course was uneventful. On day of discharge, the patient's vital signs are stable. Abdomen is soft, nontender. Positive bowel sounds. Incision is clean and dry. Uterus intact. Lochia minimal. Calves are nontender. As of note, the patient's hemoglobin dropped down from 10 to 7; however, the patient's vitals maintained stable throughout her postoperative course without any more further bleeding. The patient had no complaints of dizziness, blurred vision, or headaches. The patient was discharged home, will be followed up in the office in approximately 1 week. Dictated By: Chano Mcdaniels DO WT: DS:VRIA/JODIE/MATTHEW Conf#: [id number]/DID#: [id number] Authenticated by Chano Mcdaniels MD On 08/11/2021 09:11:03 AM at 0911 PATIENT NAME: SVETLANA BANERJEE [facility] 2021-07-26 07:25:00 [id number] [facility] [address] [place], [place], [address] PATIENT NAME: SVETLANA BANERJEE ADMIT DATE: 07/25/21 ACCOUNT NO: [id number] ROOM NO: VR.106 AGE: 20 REPORT TYPE: PROGRESS NOTE SEX: F ADMITTING PHYSICIAN:Chano Mcdaniels MD ATTENDING PHYSICIAN:Chano Mcdaniels MD DATE: 07/26/2021 SUBJECTIVE: The patient is postop day #1, status post section, with no complaints. Denies any blurred vision, dizziness, or headaches. Vital signs are stable. Hemoglobin had dropped from 10 to 7. OBJECTIVE: ABDOMEN: The abdomen is soft and nontender. Positive bowel sounds. Incision is clean and dry. Uterus intact. Lochia minimal. MUSCULOSKELETAL: Calves are nontender. ASSESSMENT AND PLAN: On postoperative day #1 stable, in recovery room; blood loss. The patient appears to be stable and asymptomatic. We will consider observation for now. If the patient remains asymptomatic, we can consider discharging home in the morning. Dictated By: Chano Mcdaniels DO WT: PN:DAYANA/ELLA Conf#: [id number]/DID#: [id number] Authenticated by Chano Mcdaniels MD On 07/27/2021 08:23:03 AM at 0823 PATIENT NAME: SVETLANA BANERJEE [facility] 2021-07-25 08:28:00 [id number] [facility] [address] [place], [place], [address] PATIENT NAME: SVETLANA BANERJEE ADMIT DATE: 07/25/21 ACCOUNT NO: [id number] ROOM NO: VR.106 AGE: 20 REPORT TYPE: OPERATIVE REPORT SEX: F ADMITTING PHYSICIAN:Chano Mcdaniels MD ATTENDING PHYSICIAN:Chano Mcdaniels MD OPERATION DATE: 07/25/2021 PROCEDURE: Repeat section. PREOPERATIVE DIAGNOSES: Intrauterine at 37 weeks, in labor. POSTOPERATIVE DIAGNOSES: Intrauterine at 37 weeks, in labor with history of previous section. SURGEON: Chano Mcdaniels DO EDGE GRINDER MACHINE: ANESTHESIA: Spinal. ESTIMATED BLOOD LOSS: 800 mL COMPLICATIONS: None. SPECIMENS: Male , Apgars 9 and 9 at 1 and 5 minutes respectively. CONDITION: Stable to recovery room. PROCEDURE IN DETAIL: The patient was brought to OR, prepped and draped in usual fashion. Once sufficiently anesthetized, Pfannenstiel incision made through the skin, carried down to the fascia. Fascia incised in transverse fashion, freed from underlying rectus muscle. Rectus muscle divided in the midline. Peritoneum identified and entered into. A DeLee retractor was used to retract tissues away from the lower segment of uterus. Taking a scalpel, low transverse incision was made in the uterus and extended laterally in both directions. Amniotic sac was ruptured. Hand was placed behind the presenting part. With assist of fundal, the infant was delivered through the abdomen in an occiput posterior fashion all the way up into including the baby. The was bulb suctioned and wrapped with a towel for at least 30 seconds for extra blood flow to the baby. Cord was then clamped and . Infant then handed to the team, identified this as a male , given Apgars 9 and 9 at 1 and 5 minutes respectively. Placenta manually removed and uterine cavity wiped clean. Uterine incision was then reapproximated using #1 Vicryl in a running interlocking fashion. Once hemostasis was restored, gutters wiped clean and the fascia was then reapproximated using #1 Vicryl in a running fashion. The skin was reapproximated using 3-0 Vicryl in subcuticular style. Dressing applied to the wound. The patient was brought out of anesthesia and transferred to PATIENT NAME: SVETLANA BANERJEE recovery room in stable and satisfactory condition. Needle count, sponge count, and instrument count were found to be correct. Dictated By: Chano Mcdaniels DO WT: OP:DAYANA/JODIE/MATTHEW Conf#: [id number]/DID#: [id number] Authenticated by Chano Mcdaniels MD On 07/27/2021 08:23:01 AM at 0823 PATIENT NAME: SVETLANA BANERJEE [facility] 2021-07-25 06:56:00 [id number] [place] [address] [place], [place], [address] PATIENT NAME: SVETLANA BANERJEE ADMIT DATE: 07/25/21 ACCOUNT NO: [id number] ROOM NO: VR.106 AGE: 20 REPORT TYPE: HISTORY AND PHYSICAL SEX: F ADMITTING PHYSICIAN:Chano Mcdaniels MD ATTENDING PHYSICIAN:Chano Mcdaniels MD ADMISSION DATE: 07/25/2021 HISTORY OF PRESENT ILLNESS: The patient is a 20-year-old 2, para 1, previous section, who presents complaining of abdominal pain at 37 plus weeks of gestation. ALLERGIES: THE PATIENT HAS NO KNOWN DRUG ALLERGIES. SOCIAL HISTORY: Denies use of drugs, tobacco, alcohol, or history of sexually transmitted diseases. PHYSICAL EXAMINATION: GENERAL: Well-nourished, well-developed female, in moderate discomfort secondary to abdominal pain. HEENT: Within normal limits. HEART: Regular rate and rhythm. LUNGS: Clear to auscultation in all rcenshaw. ABDOMEN: Soft, nontender. Palpable uterus approximately 36 to 37 cm. PELVIS: The cervix is fingertip to 1, 50% effaced, -2 to -3 station, membranes intact. heart tones 130s to 140s. Contractions every 2 to 3 minutes in moderate amount of intensity. EXTREMITIES: No calf tenderness. Deep tendon reflex +2/4 with minimal edema. IMPRESSION: Intrauterine at term with history of previous section, complaining of abdominal pain. PLAN: Plan is for a repeat section. The patient given opportunity to ask questions, indicates she understands the procedure, will accept benefits as well as risks. Dictated By: Chano Mcdaniels DO WT: HP:DAYANA/JODIE/MATTHEW Conf#: [id number]/DID#: [id number] Authenticated by Chano Mcdaniels MD On 07/27/2021 08:22:58 AM PATIENT NAME: SVETLANA BANERJEE at 0822 PATIENT NAME: [facility]
[2024-02-23] MEDS ORDERED: PROMETHAZINE INJ 25 MG/ML AMP ONE (09:03)
[2024-02-23] MEDS ORDERED: KETOROLAC 30 MG/ML INJ ONE (09:03)
[2024-02-23] MEDS ORDERED: NA CHLORIDE 0.9% 1,000 ML ONE (09:03)
[2024-02-23 09:07] LABS: Specific Gravity 1.028 (1.005-1.030)
[2024-02-23 09:09] LABS: Specific Gravity 1.028 (1.005-1.030); Transitional Epithelial <5 /HPF (None Seen); Urine Bacteria None Seen /HPF (<20); Urine Bilirubin NEGATIVE (Negative); Urine Blood Negative (Negative); Urine Clarity Turbid (Clear); Urine Color Yellow (Yellow); Urine Culture Reflex Order NOT NEEDED; Urine Glucose NEGATIVE (Negative); Urine Ketones 3+ (Negative); Urine Microscopic Reflex YN ORDER UMIC; Urine Mucus 1+ /HPF (None Seen); Urine Nitrite NEGATIVE (Negative); Urine Protein TRACE (Negative); Urine RBC <5 /HPF (None Seen); Urine Urobilinogen Normal (Normal); Urine WBC <5 /HPF (<5)
[2024-02-23 09:19] LABS: SARS-CoV-2 Antigen CONTROL BLUE LINE VIS/BG OK; SARS-CoV-2 Antigen Rapid Res Negative (Negative)
[2024-02-23 09:50] LABS: Absolute Lymphocytes (CBC) 0.7 K/uL (0.7-4.9); Absolute Monocytes 0.4 K/uL (0.1-1.3); Absolute Neutrophil 5.9 K/uL (1.8-8.0); Basophils % 0.3 % (0-1.3); Hematocrit 39.3 % (36.0-45.0); Hemoglobin 13.5 g/dL (12.0-15.0); Lymphocytes % 10.1 % (15.3-44.8); MCH 30.4 pg (27.0-35.0); MCHC 34.4 g/dL (32.0-36.0); MCV 88.3 fL (80-100); MPV 8.7 fL (7.6-11.3); Monocytes % 5.5 % (3.3-12.3); Neutrophils % 84.1 % (41.7-73.7); Nucleated Red Blood Cells % 0.1 % (0-0); Platelets 240 thou/uL (152-406); RBC Red Blood Cell Count 4.45 M/uL (3.86-4.86); Red Cell Distribution Width 13.1 % (12.1-15.2)
[2024-02-23 10:08] LABS: ALT/SGPT 19 U/L (13-56); Albumin 3.9 g/dL (3.4-5.0); Alkaline Phosphatase 110 U/L (45-117); Anion Gap 9.7 mEq/L (5.0-15.0); BUN Blood Urea Nitrogen 9 mg/dL (7-18); Bicarbonate 24 mEq/L (21-32); Bilirubin Total 0.4 mg/dL (0.2-1.0); Glomerular Filtration Rate 125 ml/min (=/>90); Glucose Level 142 mg/dL (74-106); Potassium 3.7 mEq/L (3.5-5.1); Protein, Total 7.9 g/dL (6.4-8.2); Sodium Level 138 mEq/L (136-145)
[2024-02-23 10:10] LABS: AST/SGOT < 10 U/L (15-37)
--- NOTE | 2024-02-23 10:25 | EDPHYS ---
Physician Documentation [facility] Name: Debra Banerjee Age: 23 yrs Sex: Female : 2000 Arrival Date: 02/23/2024 Time: 08:32 Bed 14 Private MD: ED Physician Patricia Hay HPI: 02/22 09:14 This 23 yrs old Female presents to ER via Ambulatory with complaints of sp3 Doesn't Feel Right, Fever, Headache. 09:14 23-year-old female with a history of migraines now presents with slow migraine headache sp3 onset yesterday not relieved with Tylenol and now nausea and vomiting. She denies any fever, but does endorse mild cough and bodyaches. She denies chest pain, shortness of breath, syncope, near syncope, diarrhea, known sick contacts, or any other signs or symptoms on ROS at this time.. Historical: - Allergies: 10:08 No Known Allergies; db - PMHx: 08:48 depressive disorder; db - PSHx: 08:48 section; db - Immunization history:: Adult Immunizations unknown. - Infectious Disease History:: Denies. - Social history:: Smoking status: Patient denies any tobacco usage or history of. Patient uses street drugs, marijuana. ROS: 09:14 Eyes: Negative for injury, pain, redness, and discharge, ENT: Negative for injury, sp3 pain, and discharge, Neck: Negative for injury, pain, and swelling, Respiratory: Negative for shortness of breath, cough, wheezing, and pleuritic chest pain, Back: Negative for injury and pain, MS/Extremity: Negative for injury and deformity, Skin: Negative for injury, rash, and discoloration, Psych: Negative for depression, anxiety, suicide ideation, homicidal ideation, and hallucinations, Allergy/Immunology: Negative for hives, rash, and allergies, Endocrine: Negative for neck swelling, polydipsia, polyuria, polyphagia, and marked weight changes, Hematologic/Lymphatic: Negative for swollen nodes, abnormal bleeding, and unusual bruising, 09:14 All other systems are negative, Exam: 09:14 Constitutional: This is a well developed, well nourished patient who is awake, alert, sp3 and in no acute distress. Head/Face: Normocephalic, atraumatic. Eyes: Pupils equal round and reactive to light, extra-ocular motions intact. Lids and lashes normal. Conjunctiva and sclera are non-icteric and not injected. Cornea within normal limits. Periorbital areas with no swelling, redness, or edema. Neck: Trachea midline, no thyromegaly or masses palpated, and no cervical lymphadenopathy. Supple, full range of motion without nuchal rigidity, or vertebral point tenderness. No Meningismus. Chest/axilla: Normal chest wall appearance and motion. Nontender with no deformity. No lesions are appreciated. Cardiovascular: Regular rate and rhythm with a normal S1 and S2. No gallops, murmurs, or rubs. Normal PMI, no JVD. No pulse deficits. Respiratory: Lungs have equal breath sounds bilaterally, clear to auscultation and percussion. No rales, rhonchi or wheezes noted. No increased work of breathing, no retractions or nasal flaring. Abdomen/GI: Soft, non-tender, with normal bowel sounds. No distension or tympany. No guarding or rebound. No evidence of tenderness throughout. Back: No spinal tenderness. No costovertebral tenderness. Full range of motion. Skin: Warm, dry with normal turgor. Normal color with no rashes, no lesions, and no evidence of cellulitis. MS/ Extremity: Pulses equal, no cyanosis. Neurovascular intact. Full, normal range of motion. Neuro: Awake and alert, GCS 15, oriented to person, place, time, and situation. Cranial nerves II-XII grossly intact. Motor strength 5/5 in all extremities. Sensory grossly intact. Cerebellar exam normal. Normal gait. Psych: Awake, alert, with orientation to person, place and time. Behavior, mood, and affect are within normal limits. 09:14 Cardiovascular: Recently tachycardic at 106 but on my exam at 88., Vital Signs: 08:37 BP 127 / 80; Pulse 106; Resp 16; Temp 99; Pulse Ox 98% on R/A; Weight 76.2 kg; Height 4 db ft. 11 in. ; Pain 9/10; 09:00 BP 116 / 75; Pulse 87; Resp 16; Pulse Ox 98% on R/A; db 09:41 BP 121 / 86; Pulse 107; Resp 18; Pulse Ox 99% ; db 10:00 BP 110 / 77; Pulse 91; Resp 18; Pulse Ox 100% on R/A; db 10:30 BP 107 / 62; Pulse 84; Resp 16; Pulse Ox 98% on R/A; db 08:37 Body Mass Index 33.93 (76.20 kg, 149.86 cm) db 08:37 Pain Scale: Adult db MDM: 08:42 Patient medically screened. sp3 09:15 Data reviewed: vital signs, nurses notes, lab test result(s). ED course: 21-year-old sp3 female with viral syndrome versus migraine headache. Clinically I am not highly suspicious for sepsis, shock, intracranial hemorrhage, stroke, or any other critical illness. Will obtain viral swabs, urine analysis and treat headache with Phenergan and ketorolac IV with general labs pending. If workup negative, we will safely discharge patient home.. 10:23 ED course: Patient feeling better. Laboratory values are within normal limits and heart sp3 rate continues to be normal. Patient is resting/sleeping and had to be woken up to give her results. We will safely discharge home at this time.. 02/22 08:43 Order name: Strep sp3 02/22 08:43 Order name: Test, Urine; Complete Time: 10:23 sp3 02/22 08:43 Order name: Urinalysis w/ reflexes; Complete Time: 10:23 sp3 02/22 08:43 Order name: SARS RAPID; Complete Time: 10:23 sp3 02/22 08:43 Order name: Flu; Complete Time: 10:23 sp3 02/22 08:56 Order name: CBC with Diff; Complete Time: 10:23 sp3 02/22 08:56 Order name: CMP; Complete Time: 10:23 sp3 02/22 09:22 Order name: Throat Culture EDMS 02/22 08:56 Order name: IV Saline Lock; Complete Time: 10:04 sp3 02/22 08:56 Order name: Labs collected and sent; Complete Time: 10:04 sp3 Administered Medications: 09:35 Drug: NS 0.9% IV 1000 ml IV at 1 bolus Per protocol; 1000 mL bolus Route: IV; Rate: 1 db bolus; Site: left antecubital; 10:29 Follow up: Response: No adverse reaction; IV Status: Completed infusion; IV Intake: db 1000ml 09:36 Drug: TORadol - Ketorolac IVP 15 mg IVP once Route: IVP; Site: left antecubital; db 10:06 Follow up: Response: No adverse reaction; Pain is decreased db 09:40 Drug: Promethazine IVP 12.5 mg IVP once Route: IVP; Site: left antecubital; db 10:29 Follow up: Response: No adverse reaction; Nausea is decreased db Disposition Summary: 02/23/24 10:25 Discharge Ordered Notes: Location: Home sp3 Condition: Stable sp3 Diagnosis - Migraine headache sp3 Followup: sp3 - With: Private Physician - When: Upon discharge from the Emergency Department - Reason: Continuance of care Discharge Instructions: - Discharge Summary Sheet sp3 - Migraine Headache sp3 Forms: - Medication Reconciliation Form sp3 - Antibiotic Education sp3 - Prescription Opioid Use sp3 - Patient Portal Instructions sp3 - Leadership Thank You Letter sp3 - Work release form db Prescriptions: - promethazine 25 mg Oral Tablet - take 1 tablet ORAL route every 6 hours As needed; 20 tablet; Refills: 0, sp3 Product Selection Permitted Signatures: Dispatcher [employer] EDMS Patricia Hay MD MD sp3 Sara Kaur RN RN db Corrections: (The following items were deleted from the chart) 08:43 08:43 Test, Urine+UC.LAB.BRZ ordered. EDMS EDMS 08:43 08:43 Urinalysis+U.LAB.BRZ ordered. EDMS EDMS 08:43 08:43 SARS-COV-2 Antigen Rapid+I.LAB.BRZ ordered. EDMS EDMS 08:43 08:43 Influenza Screen (A \T\ B)+BA.LAB.BRZ ordered. EDMS EDMS 08:43 08:43 Group A Streptococcus Rapid Sc+BA.LAB.BRZ ordered. EDMS EDMS 10:23 10:23 ED course: Patient feeling better. Laboratory values are within normal limits and sp3 heart rate continues to be normal. We will safely discharge home at this time.. sp3
--- NOTE | 2024-02-23 10:25 | ER ---
Nurse's Notes [facility] Name: Debra Banerjee Age: 23 yrs Sex: Female : 2000 Arrival Date: 02/23/2024 Time: 08:32 Bed 14 Private MD: Diagnosis: Migraine headache Presentation: 02/22 08:37 Chief complaint: Patient states: HEADACHE SINCE YESTERDAY 0530 NAUSEA/ VOMITING STARTED db THIS AM. TOOK TYLENOL AND SINUS MEDICINE NOT HELPING. Coronavirus screen: Client denies travel out of the [place] in the last 14 days. At this time, the client does not indicate any symptoms associated with coronavirus-19. Ebola Screen: Patient negative for fever greater than or equal to 101.5 degrees Fahrenheit, and additional compatible Ebola Virus Disease symptoms Patient denies exposure to infectious person. Patient denies travel to an Ebola-affected area in the 21 days before illness onset. No symptoms or risks identified at this time. Initial Sepsis Screen: Does the patient meet any 2 criteria? No. Patient's initial sepsis screen is negative. Does the patient have a suspected source of infection? No. Patient's initial sepsis screen is negative. Risk Assessment: Do you want to hurt yourself or someone else? Patient reports no desire to harm self or others. Onset of symptoms was February 22, 2024. 08:37 Method Of Arrival: Ambulatory db 08:37 Acuity: EILEEN 4 db 09:31 Acuity: EILEEN 3 iw Triage Assessment: 08:48 Headache History: The patient has had previous headaches and this one is similar to db previous episodes. General: Appears in no apparent distress. comfortable, Behavior is calm, cooperative. Pain: Complains of pain in head Pain currently is 9 out of 10 on a pain scale. Pain began 1 day ago. Also complains of nausea. Neuro: Level of Consciousness is awake, alert, obeys commands, Oriented to person, place, time, situation. Respiratory: Airway is patent Respiratory effort is even, unlabored, Respiratory pattern is regular, symmetrical. GI: Abdomen is non-distended, Reports nausea, vomiting. Historical: - Allergies: 10:08 No Known Allergies; db - PMHx: 08:48 depressive disorder; db - PSHx: 08:48 section; db - Immunization history:: Adult Immunizations unknown. - Infectious Disease History:: Denies. - Social history:: Smoking status: Patient denies any tobacco usage or history of. Patient uses street drugs, marijuana. Screenin:57 [facility] ED Fall Risk Assessment (Adult) History of falling in the last 3 months, db including since admission No falls in past 3 months (0 pts) Confusion or Disorientation No (0 pts) Intoxicated or Sedated No (0 pts) Impaired Gait No (0 pts) Mobility Assist Device Used No (0 pt) Altered Elimination No (0 pt) Score/Fall Risk Level 0 - 2 = Low Risk Oriented to surroundings, Maintained a safe environment. Abuse screen: Denies threats or abuse. Denies injuries from another. Nutritional screening: No deficits noted. Tuberculosis screening: No symptoms or risk factors identified. Assessment: 08:57 Reassessment: SEE TRIAGE FOR INITIAL ASSESSMENT. db 10:06 Reassessment: Patient appears in no apparent distress at this time. Patient and/or db family updated on plan of care and expected duration. Pain level reassessed. Patient is alert, oriented x 3, equal unlabored respirations, skin warm/dry/pink. Reassessment: Patient states feeling better. Patient states symptoms have improved. General: Appears in no apparent distress. comfortable. Pain: Complains of pain in head. Neuro: Level of Consciousness is awake, alert, obeys commands, Oriented to person, place, time, situation. Respiratory: Airway is patent Respiratory effort is even, unlabored, Respiratory pattern is regular, symmetrical. 10:28 Reassessment: Patient appears in no apparent distress at this time. Patient and/or db family updated on plan of care and expected duration. Pain level reassessed. Patient is alert, oriented x 3, equal unlabored respirations, skin warm/dry/pink. Patient states feeling better. 10:35 Reassessment: PATIENT DC PENDING IV FLUIDS. db 10:52 Reassessment: Patient appears in no apparent distress at this time. Patient and/or db family updated on plan of care and expected duration. Pain level reassessed. Patient is alert, oriented x 3, equal unlabored respirations, skin warm/dry/pink. Patient states feeling better. Patient states symptoms have improved. Vital Signs: 08:37 BP 127 / 80; Pulse 106; Resp 16; Temp 99; Pulse Ox 98% on R/A; Weight 76.2 kg; Height 4 db ft. 11 in. ; Pain 9/10; 09:00 BP 116 / 75; Pulse 87; Resp 16; Pulse Ox 98% on R/A; db 09:41 BP 121 / 86; Pulse 107; Resp 18; Pulse Ox 99% ; db 10:00 BP 110 / 77; Pulse 91; Resp 18; Pulse Ox 100% on R/A; db 10:30 BP 107 / 62; Pulse 84; Resp 16; Pulse Ox 98% on R/A; db 08:37 Body Mass Index 33.93 (76.20 kg, 149.86 cm) db 08:37 Pain Scale: Adult db ED Course: 08:37 Patient arrived in ED. im 08:40 Sara Kaur, ZULAY is Primary Nurse. db 08:41 Patricia Hay MD is Attending Physician. sp3 08:48 Triage completed. db 08:48 Arm band placed on Patient placed in an exam room. db 08:55 Urine collected: clean catch specimen, clear, COVID swab sent to lab. Flu and/or RSV db swab sent to lab. 08:57 Patient has correct armband on for positive identification. Bed in low position. Call db light in reach. Side rails up X 1. Pulse ox on. NIBP on. 09:30 Initial lab(s) drawn, by ED staff, sent to lab. Inserted saline lock: 20 gauge in left db antecubital area, using aseptic technique. Blood collected. Flushed with 10 mL NS. 10:07 Provided Education on: LABS. Warm blanket given. Pillow given. db 10:51 No provider procedures requiring assistance completed. IV discontinued, intact, db bleeding controlled, No redness/swelling at site. Administered Medications: 09:35 Drug: NS 0.9% IV 1000 ml IV at 1 bolus Per protocol; 1000 mL bolus Route: IV; Rate: 1 db bolus; Site: left antecubital; 10:29 Follow up: Response: No adverse reaction; IV Status: Completed infusion; IV Intake: db 1000ml 09:36 Drug: TORadol - Ketorolac IVP 15 mg IVP once Route: IVP; Site: left antecubital; db 10:06 Follow up: Response: No adverse reaction; Pain is decreased db 09:40 Drug: Promethazine IVP 12.5 mg IVP once Route: IVP; Site: left antecubital; db 10:29 Follow up: Response: No adverse reaction; Nausea is decreased db Medication: 10: VIS not applicable for this client. db Intake: 10:29 IV: 1000ml; Total: 1000ml. db Outcome: 10:25 Discharge ordered by . sp3 10:51 Discharged to home ambulatory, db 10:51 Condition: stable 10:51 Discharge instructions given to patient, Instructed on discharge instructions, follow up and referral plans. Prescriptions given X 1, 10:52 Patient left the ED. db Signatures: Mary Jo Liu, RN RN iw Patricia Hay MD MD sp3 Sara Kaur, RN RN db Sydney Banerjee Corrections: (The following items were deleted from the chart) 10:02 09:40 Promethazine IVP 12.5 mg IVP in right antecubital db db 10:07 08:37 BP 127 / 80; Pulse 106bpm; Resp 16bpm; Pulse Ox 98% RA; Temp 99F; 76.2 kg; Height db 4 ft. 11 in.; BMI: 33.9; db
[2024-02-23 11:10] VITALS: TEMP 99
[2024-02-23 11:15] VITALS: BP 107/62; O2SAT 98
== END 2024-02-23 10:52 | disposition home or self-care (01) ==
LOC: ER 08:32
DX: G43.009 Migraine without aura, not intractable, without status migrainosus (principal); Z11.52 Encounter for screening for COVID-19
CPT/HCPCS: 96361; 87070; 85025; 81001; 36415; 81025; 87081; 80053; 87804 ×2; 96375; 96374; 99284; 87811; J2550; J7030